=== PATIENT | male | born 1950 | race Caucasian/White ===

== ENCOUNTER → 2016-09-29 | Outpatient (CLI) | payer MEDICARE | END | disposition home or self-care (01) | LOC: M WUC 11:52 | PROVIDERS: ATTEND Internal Medicine | DX: M10.9 Gout, unspecified (principal) ==

== ENCOUNTER → 2017-06-13 | Outpatient (REF) | payer MEDICARE ==
[2017-06-13 13:28] LABS: MEAN CORPUSCULAR HEMOGLOBIN 31.6 pg (27.0-33.0); MEAN CORPUSCULAR HGB CONC 34.5 g/dl (32.0-36.5); MEAN CORPUSCULAR VOLUME 91.5 fl (80.0-96.0); WHITE BLOOD COUNT 3.8 10^3/uL (4.0-10.0)
[2017-06-13 13:40] LABS: ALBUMIN 4.1 GM/DL (3.2-5.2); ALBUMIN/GLOBULIN RATIO 1.32 (1.00-1.93); ALKALINE PHOSPHATASE 59 U/L (45-117); ALT/SGPT 26 U/L (12-78); ANION GAP 4 MEQ/L (8-16); AST/SGOT 20 U/L (15-37); BILIRUBIN,TOTAL 0.7 MG/DL (0.2-1.0); BLOOD UREA NITROGEN 23 MG/DL (7-18); CALCIUM LEVEL 8.2 MG/DL (8.8-10.2); CARBON DIOXIDE LEVEL 28 MEQ/L (21-32); CHLORIDE LEVEL 106 MEQ/L (98-107); CHOLESTEROL LEVEL 165 MG/DL (<200); CREATININE FOR GFR 1.03 MG/DL (0.70-1.30); GLOMERULAR FILTRATION RATE > 60.0 (>49); GLUCOSE, FASTING 84 MG/DL (80-110); POTASSIUM SERUM 4.9 MEQ/L (3.5-5.1); SODIUM LEVEL 138 MEQ/L (136-145); TOTAL PROTEIN 7.2 GM/DL (6.4-8.2); TRIGLYCERIDES LEVEL 149 MG/DL (<150); URIC ACID 6.2 MG/DL (3.5-7.2)
== END ==
LOC: M SFHCPLAZ 11:01
PROVIDERS: ATTEND Internal Medicine
DX: Z51.81 Encounter for therapeutic drug level monitoring (principal); Z79.899 Other long term (current) drug therapy; E78.00 Pure hypercholesterolemia, unspecified; Z12.5 Encounter for screening for malignant neoplasm of prostate; M10.9 Gout, unspecified
CPT/HCPCS: 80053; 80061; 84550; 85027; G0103

== ENCOUNTER 2017-10-03 10:18 | Day surgery (SDC) | payer MEDICARE ==
[2017-10-03] MEDS: NS 1,000 ML IV (10:53)
== END 2017-10-03 11:50 | disposition home or self-care (01) ==
LOC: M OPP 10:18
DX: Z12.11 Encounter for screening for malignant neoplasm of colon (principal); Z86.010 Personal history of colon polyps; K62.1 Rectal polyp; D12.2 Benign neoplasm of ascending colon; K64.0 First degree hemorrhoids; K57.30 Diverticulosis of large intestine without perforation or abscess without bleeding; E78.5 Hyperlipidemia, unspecified; K21.9 Gastro-esophageal reflux disease without esophagitis; R12 Heartburn; M19.90 Unspecified osteoarthritis, unspecified site; Z87.891 Personal history of nicotine dependence; Z79.82 Long term (current) use of aspirin; Z79.899 Other long term (current) drug therapy
CPT/HCPCS: 45385

== ENCOUNTER 2018-05-29 19:02 | Emergency (ER) | payer MEDICARE ==
[2018-05-29] MEDS: NS 500 ML IV (20:00)
[2018-05-29 20:03] LABS: BASO % 0.4 % (0.0-1.0); EOS # 0.1 10^3/uL (0.0-0.50); EOS % 0.6 % (0.0-3.0); HEMATOCRIT 44.3 % (42.0-52.0); HEMOGLOBIN 15.2 g/dl (13.5-17.5); IMMATURE GRANULOCYTE % 0.4 % (0-3.0); LYMPH # 1.1 10^3/uL (1.5-4.5); LYMPH % 11.2 % (24.0-44.0); MEAN CORPUSCULAR HGB CONC 34.3 g/dl (32.0-36.5); MEAN CORPUSCULAR VOLUME 90.4 fl (80.0-96.0); MONO # 0.5 10^3/uL (0.0-0.8); MONO % 4.9 % (0.0-5.0); NEUTROPHILS # 7.9 10^3/uL (1.8-7.7); NEUTROPHILS % 82.5 % (36.0-66.0); PLATELET COUNT, AUTOMATED 255 10^3/uL (150-450); RED CELL DISTRIBUTION WIDTH 12.6 % (11.5-14.5); WHITE BLOOD COUNT 9.6 10^3/uL (4.0-10.0)
[2018-05-29] MEDS: MORPHINE 4 MG/ML 1ML VIAL/SYRINGE (J2270) IV (20:03)
[2018-05-29] MEDS: ONDANSETRON 4MG/2ML VIAL (J2405) IV (20:03)
[2018-05-29 20:13] LABS: KETONE, URINE AUTO RFX TRACE mg/dL (NEGATIVE); LEUKOCYTE ESTERASE UR AUTO RFX NEGATIVE (NEGATIVE); MUCUS, URINE RFX SMALL (NEGATIVE); NITRITE, URINE AUTO RFX NEGATIVE (NEGATIVE); RBC, URINE AUTO RFX TNTC /HPF (0-3); SPECIFIC GRAVITY UR AUTO RFX 1.027 (1.002-1.035); SQUAM EPITHELIAL CELL UR AURFX 0 /HPF (0-6); WBC, URINE AUTO RFX 4 /HPF (0-3)
[2018-05-29 20:19] LABS: ALBUMIN 4.4 GM/DL (3.2-5.2); ALBUMIN/GLOBULIN RATIO 1.26 (1.00-1.93); ALKALINE PHOSPHATASE 72 U/L (45-117); ALT/SGPT 28 U/L (12-78); ANION GAP 11 MEQ/L (8-16); AST/SGOT 24 U/L (7-37); BILIRUBIN,DIRECT 0.1 MG/DL (0.0-0.2); BILIRUBIN,TOTAL 0.5 MG/DL (0.2-1.0); BLOOD UREA NITROGEN 19 MG/DL (7-18); CALCIUM LEVEL 9.3 MG/DL (8.8-10.2); CARBON DIOXIDE LEVEL 24 MEQ/L (21-32); CHLORIDE LEVEL 107 MEQ/L (98-107); CREATININE FOR GFR 1.24 MG/DL (0.70-1.30); GLOMERULAR FILTRATION RATE > 60.0 (>49); GLUCOSE, FASTING 120 MG/DL (70-100); POTASSIUM SERUM 3.6 MEQ/L (3.5-5.1); SODIUM LEVEL 142 MEQ/L (136-145); TOTAL PROTEIN 7.9 GM/DL (6.4-8.2)
[2018-05-29] MEDS: OXYCODONE/APAP 5MG/325MG(BULK FOR ED) 1 TABLET PO (22:22)
[2018-05-29] MEDS: ONDANSETRON 4 MG ORAL DISINTEGRATING TAB (Q0162 PER 1MG) PO (22:23)
[2018-05-29] MEDS: CIPROFLOXACIN 500 MG TAB PO (22:24)
== END 2018-05-29 22:53 | disposition home or self-care (01) ==
LOC: M ED 19:02
DX: N20.1 Calculus of ureter (principal); E78.5 Hyperlipidemia, unspecified; Z79.899 Other long term (current) drug therapy; Z79.82 Long term (current) use of aspirin
CPT/HCPCS: J2270

== ENCOUNTER → 2018-06-05 | Outpatient (REF) | payer MEDICARE ==
[2018-06-05 14:20] LABS: APPEARANCE, URINE CLEAR (CLEAR); BACTERIA, URINE AUTO NEGATIVE (NEGATIVE); BILIRUBIN, URINE AUTO NEGATIVE (NEGATIVE); BLOOD, URINE BLOOD 2+ (NEGATIVE); COLOR, URINE YELLOW (YELLOW); GLUCOSE, URINE (UA) AUTO NEGATIVE (NEGATIVE); KETONE, URINE AUTO NEGATIVE (NEGATIVE); LEUKOCYTE ESTERASE, URINE AUTO NEGATIVE (NEGATIVE); NITRITE, URINE AUTO NEGATIVE (NEGATIVE); PROTEIN, URINE AUTO NEGATIVE (NEGATIVE); RBC, URINE AUTO 9 /HPF (0-3); SPECIFIC GRAVITY URINE AUTO 1.008 (1.002-1.035); SQUAMOUS EPITHELIAL CELL UR AU 0 /HPF (0-6); UROBILINOGEN, URINE AUTO 0.2 mg/dL (0.0-2.0); WBC, URINE AUTO 1 /HPF (0-3)
== END ==
LOC: M SMT 13:34
DX: N20.0 Calculus of kidney (principal); R30.0 Dysuria
CPT/HCPCS: 81001

== ENCOUNTER → 2018-06-06 | Outpatient (REF) | payer MEDICARE ==
[2018-06-06 11:52] LABS: HEMATOCRIT 42.2 % (42.0-52.0); HEMOGLOBIN 14.4 g/dl (13.5-17.5); MEAN CORPUSCULAR HEMOGLOBIN 31.1 pg (27.0-33.0); MEAN CORPUSCULAR HGB CONC 34.1 g/dl (32.0-36.5); MEAN CORPUSCULAR VOLUME 91.1 fl (80.0-96.0); PLATELET COUNT, AUTOMATED 246 10^3/uL (150-450); RED BLOOD COUNT 4.63 10^6/uL (4.30-6.10); RED CELL DISTRIBUTION WIDTH 12.6 % (11.5-14.5); WHITE BLOOD COUNT 4.7 10^3/uL (4.0-10.0)
[2018-06-06 13:47] LABS: ALBUMIN/GLOBULIN RATIO 1.33 (1.00-1.93); ALKALINE PHOSPHATASE 56 U/L (45-117); ALT/SGPT 26 U/L (12-78); ANION GAP 11 MEQ/L (8-16); AST/SGOT 22 U/L (7-37); BILIRUBIN,TOTAL 0.7 MG/DL (0.2-1.0); BLOOD UREA NITROGEN 15 MG/DL (7-18); CARBON DIOXIDE LEVEL 26 MEQ/L (21-32); CHLORIDE LEVEL 107 MEQ/L (98-107); CHOLESTEROL LEVEL 170 MG/DL (<200); CHOLESTEROL RISK RATIO 3.469 (<5); CREATININE FOR GFR 0.99 MG/DL (0.70-1.30); GLOMERULAR FILTRATION RATE > 60.0 (>49); GLUCOSE, FASTING 91 MG/DL (70-100); HDL CHOLESTEROL 49 MG/DL (>40); LDL CHOLESTEROL 103 MG/DL (<100); NON-HDL-C 121 MG/DL; POTASSIUM SERUM 4.7 MEQ/L (3.5-5.1); PSA SCREENING 2.22 NG/ML (< 4.0); SODIUM LEVEL 144 MEQ/L (136-145); TRIGLYCERIDES LEVEL 91 MG/DL (<150); URIC ACID 5.3 MG/DL (3.5-7.2)
[2018-06-07 10:22] LABS: HEP C VIRUS AB SCREEN MEDICARE 0.2 INDEX (<0.8)
== END ==
LOC: M SFHCPLAZ 08:45
DX: K21.9 Gastro-esophageal reflux disease without esophagitis (principal); E78.00 Pure hypercholesterolemia, unspecified; Z12.5 Encounter for screening for malignant neoplasm of prostate; M10.9 Gout, unspecified; Z00.00 Encounter for general adult medical examination without abnormal findings; Z11.59 Encounter for screening for other viral diseases
CPT/HCPCS: 84550

== ENCOUNTER → 2018-07-04 | Outpatient (REF) | payer MEDICARE ==
[2018-07-04 18:40] LABS: APPEARANCE, URINE CLEAR (CLEAR); BACTERIA, URINE AUTO NEGATIVE (NEGATIVE); BILIRUBIN, URINE AUTO NEGATIVE (NEGATIVE); BLOOD, URINE BLOOD 1+ (NEGATIVE); COLOR, URINE STRAW (YELLOW); GLUCOSE, URINE (UA) AUTO NEGATIVE (NEGATIVE); KETONE, URINE AUTO NEGATIVE (NEGATIVE); LEUKOCYTE ESTERASE, URINE AUTO NEGATIVE (NEGATIVE); NITRITE, URINE AUTO NEGATIVE (NEGATIVE); PROTEIN, URINE AUTO NEGATIVE (NEGATIVE); RBC, URINE AUTO 3 /HPF (0-3); SPECIFIC GRAVITY URINE AUTO 1.008 (1.002-1.035); SQUAMOUS EPITHELIAL CELL UR AU 0 /HPF (0-6); UROBILINOGEN, URINE AUTO 0.2 mg/dL (0.0-2.0); WBC, URINE AUTO 1 /HPF (0-3)
== END ==
LOC: M SMT 17:17
DX: N20.0 Calculus of kidney (principal)
CPT/HCPCS: 81001

== ENCOUNTER 2019-01-28 15:41 | Emergency (ER) | payer MEDICARE ==
[~2019-01-28] VITALS: Ht 172.7 cm; Wt 90.9 kg
[~2019-01-28 15:41] MED LIST: ASPI81TA26 PO; ATOR1TAB19 PO; ATOR1TAB21; CENTTAB PO; CIPR-249 PO; FLOM0.4C39 PO; PERC5TAB12 PO; ZOFR4TAB14 PO
[2019-01-28] MEDS ORDERED: ADACEL/BOOSTRIX VACCINE (DIPHTH/PERTUSS/ACELL/TETANUS)0.5ML SYR (90715) IM ONE (16:00)
[2019-01-28] MEDS ORDERED: MORPHINE 4 MG/ML 1ML VIAL/SYRINGE (J2270) IV ONE (16:00)
[2019-01-28] MEDS ORDERED: PERC5TAB12 PO (18:13)
[2019-01-28] MEDS ORDERED: PERCOCET 5MG/325MG TAB PO ONE (18:15)
[2019-01-28 19:05] VITALS: BP 173/94
[2019-01-28] MEDS ORDERED: OXYCODONE/APAP 5MG/325MG(BULK FOR ED) 1 TABLET PO ONE (19:15)
--- NOTE | 2019-01-29 07:50 | REP ---
REASON: Trauma. PRIORS: None. The ventricles and sulci are within normal limits. There are no extra-axial fluid collections. There is no mass or mass effect. Scattered lucencies are seen throughout the periventricular deep cerebral white matter suggestive of deep white matter ischemic changes. There is no skull fracture. The imaged paranasal sinuses and mastoid air cells are clear. IMPRESSION: Age-related changes are suspected as described above, however, if acute stroke is of clinical concern, then MRI is recommended. Electronically Signed by Yifan Alcala DO 01/29/2019 08:41 A
--- NOTE | 2019-01-29 07:50 | REP ---
REASON: Trauma. PRIORS: None. The facet joints are well aligned bilaterally. Vertebral body height and alignment is within normal limits. There is no acute fracture. There is degenerative disc space narrowing and anterior lipping at every level particularly C5-C7 inclusive. There is no abnormal paraspinal soft tissue swelling. The imaged lung villa are unremarkable. IMPRESSION: Chronic changes. Electronically Signed by Yifan Alcala DO 01/29/2019 08:41 A
--- NOTE | 2019-01-29 07:53 | REP ---
REASON: Trauma. PRIORS: None. The lack of intravenous contrast decreases the sensitivity of the exam. There is no evidence of gross mediastinal or hilar adenopathy. There are no pleural or pericardial effusions. Limited evaluation of the thoracic aorta shows no gross abnormality. The imaged upper abdomen is within normal limits. The imaged osseous structures show a fracture of the proximal right clavicle with slight displacement. Evaluation of the lung villa shows a tiny 4 mm size nodule in the right lower lobe. There are no other abnormal nodules, masses, or opacities. IMPRESSION: 1. Single 4 mm size right lower lobe pulmonary nodule. According to the revised Fleischner-size criteria, recommendation for followup of that nodule is in 6 months as it represents a category 3 lesion. 2. Right clavicle fracture and other findings as described above. Electronically Signed by Yifan Alcala DO 01/29/2019 08:36 A
--- NOTE | 2019-01-29 07:53 | REP ---
REASON: Trauma. PRIORS: None. FINDINGS: There is no acute fracture, dislocation, subluxation or joint effusion. Electronically Signed by Yifan Alcala DO 01/29/2019 08:41 A
--- NOTE | 2019-01-29 07:53 | REP ---
REASON: Trauma. PRIORS: None. FINDINGS: No acute fracture or destructive osseous lesion. Electronically Signed by Yifan Alcala DO 01/29/2019 08:41 A
--- NOTE | 2019-01-29 07:54 | REP ---
REASON: Pain after trauma. PRIORS: None. FINDINGS: Three views of the shoulder were performed. The acromioclavicular and glenohumeral relationships are within normal limits. There is no acute fracture or destructive osseous lesion. The proximal right clavicle is not well seen . A fracture can not be ruled out Electronically Signed by Yifan Alcala DO 01/29/2019 08:44 A
--- NOTE | 2019-01-30 14:55 | ED PDOC ---
Post-Departure Follow-Up dr couch faxed formal report of ct chest for fu Veena Thornton MD January 30, 2019 14:55
== END 2019-01-28 19:21 | disposition home or self-care (01) ==
LOC: M ED 15:41
DX: S42.001A Fracture of unspecified part of right clavicle, initial encounter for closed fracture (principal); S00.01XA Abrasion of scalp, initial encounter; W17.89XA Other fall from one level to another, initial encounter; Y92.89 Other specified places as the place of occurrence of the external cause; R91.1 Solitary pulmonary nodule; E78.9 Disorder of lipoprotein metabolism, unspecified; Z79.82 Long term (current) use of aspirin
CPT/HCPCS: 70450; 71250; 72125; 73030; 73060; 73080; 90471; 90715; 96374; 99284; J2270

== ENCOUNTER → 2019-06-13 | Outpatient (REF) | payer MEDICARE ==
[2019-06-13 13:07] LABS: APPEARANCE, URINE CLEAR (CLEAR); BACTERIA, URINE AUTO NEGATIVE (NEGATIVE); BILIRUBIN, URINE AUTO NEGATIVE (NEGATIVE); BLOOD, URINE BLOOD 1+ (NEGATIVE); COLOR, URINE YELLOW (YELLOW); GLUCOSE, URINE (UA) AUTO NEGATIVE (NEGATIVE); HEMATOCRIT 41.6 % (42.0-52.0); HEMOGLOBIN 14.2 g/dl (13.5-17.5); KETONE, URINE AUTO NEGATIVE (NEGATIVE); LEUKOCYTE ESTERASE, URINE AUTO NEGATIVE (NEGATIVE); MEAN CORPUSCULAR HEMOGLOBIN 31.4 pg (27.0-33.0); MEAN CORPUSCULAR HGB CONC 34.1 g/dl (32.0-36.5); MUCUS, URINE SMALL (NEGATIVE); NITRITE, URINE AUTO NEGATIVE (NEGATIVE); PLATELET COUNT, AUTOMATED 228 10^3/uL (150-450); PROTEIN, URINE AUTO NEGATIVE (NEGATIVE); RBC, URINE AUTO 4 /HPF (0-3); RED BLOOD COUNT 4.52 10^6/uL (4.30-6.10); SQUAMOUS EPITHELIAL CELL UR AU 0 /HPF (0-6); UROBILINOGEN, URINE AUTO 0.2 mg/dL (0.0-2.0); WBC, URINE AUTO 0 /HPF (0-3); WHITE BLOOD COUNT 4.3 10^3/uL (4.0-10.0)
[2019-06-13 13:40] LABS: ALBUMIN 3.6 GM/DL (3.2-5.2); ALT/SGPT 32 U/L (12-78); BILIRUBIN,TOTAL 0.6 MG/DL (0.2-1.0); BLOOD UREA NITROGEN 16 MG/DL (7-18); CALCIUM LEVEL 8.5 MG/DL (8.8-10.2); CARBON DIOXIDE LEVEL 28 MEQ/L (21-32); CHLORIDE LEVEL 110 MEQ/L (98-107); CHOLESTEROL LEVEL 154 MG/DL (<200); CHOLESTEROL RISK RATIO 3.756 (<5); CREATININE FOR GFR 0.97 MG/DL (0.70-1.30); GLOMERULAR FILTRATION RATE > 60.0 (>49); GLUCOSE, FASTING 99 MG/DL (70-100); HDL CHOLESTEROL 41 MG/DL (>40); LDL CHOLESTEROL 95 MG/DL (<100); MAGNESIUM LEVEL 2.3 MG/DL (1.8-2.4); NON-HDL-C 113 MG/DL; POTASSIUM SERUM 4.3 MEQ/L (3.5-5.1); SODIUM LEVEL 144 MEQ/L (136-145); TOTAL PROTEIN 6.6 GM/DL (6.4-8.2); TRIGLYCERIDES LEVEL 91 MG/DL (<150); URIC ACID 4.8 MG/DL (3.5-7.2)
== END ==
LOC: M SFHCPLAZ 10:26
PROVIDERS: ATTEND Internal Medicine
DX: Z12.5 Encounter for screening for malignant neoplasm of prostate (principal); K21.9 Gastro-esophageal reflux disease without esophagitis; E78.00 Pure hypercholesterolemia, unspecified; Z87.442 Personal history of urinary calculi; M10.9 Gout, unspecified
CPT/HCPCS: 36415; 80053; 80061; 81001; 83735; 84550; 85027; G0103

== ENCOUNTER → 2019-08-03 | Outpatient (CLI) | payer MEDICARE ==
--- NOTE | 2019-08-03 19:06 | REP ---
CT chest without contrast: History: Lung nodule. Comparison chest CT study January 28, 2019. CT findings: A displaced, incompletely united fracture of the proximal clavicle on the right is again noted. No bony destructive lesion is seen. There has been no change in the size or appearance of the 4 mm nodule seen previously in the right lower lobe in the interval since the January 28, 2019 study. No new pulmonary nodule is seen. No pleural or pericardial effusion is seen. There is some vascular calcification. No hilar or mediastinal mass or adenopathy is observed on this noncontrast study. No adrenal lesion is seen. Impression: Stable 4 mm right lower lobe nodule unchanged times 6 months. Recommend 12-month followup chest CT. Electronically Signed by Les Plummer MD 08/04/2019 12:35 P
== END ==
LOC: M RAD 13:23
PROVIDERS: ATTEND Internal Medicine
DX: R91.1 Solitary pulmonary nodule (principal)

== ENCOUNTER → 2019-11-12 | Outpatient (CLI) | payer MEDICARE ==
--- NOTE | 2019-11-12 08:41 | REPPI ---
Chest x-ray: Two views. History: Cough. Comparison study is chest CT study from August 03, 2019. Findings: The lungs are symmetrically aerated and free of infiltrate. Pleural angles are sharp. Cardiomediastinal silhouette is unremarkable. No bony abnormality is appreciated. Impression: No active cardiopulmonary disease seen. Electronically Signed by Les Plummer MD 11/12/2019 09:35 A
== END ==
LOC: M PLAIMG 08:16
PROVIDERS: ATTEND Internal Medicine
DX: R05 Cough (principal)

== ENCOUNTER → 2020-06-12 | Outpatient (REF) | payer MEDICARE ==
[2020-06-12 15:08] LABS: HEMATOCRIT 45.5 % (42.0-52.0); HEMOGLOBIN 15.5 g/dl (13.5-17.5); MEAN CORPUSCULAR HEMOGLOBIN 31.2 pg (27.0-33.0); MEAN CORPUSCULAR HGB CONC 34.1 g/dl (32.0-36.5); MEAN CORPUSCULAR VOLUME 91.5 fl (80.0-96.0); PLATELET COUNT, AUTOMATED 256 10^3/uL (150-450); RED BLOOD COUNT 4.97 10^6/uL (4.30-6.10); WHITE BLOOD COUNT 5.4 10^3/uL (4.0-10.0)
[2020-06-12 15:38] LABS: ALBUMIN 4.1 GM/DL (3.2-5.2); ALT/SGPT 31 U/L (12-78); BILIRUBIN,TOTAL 1.1 MG/DL (0.2-1.0); BLOOD UREA NITROGEN 15 MG/DL (7-18); CALCIUM LEVEL 9.5 MG/DL (8.8-10.2); CARBON DIOXIDE LEVEL 29 MEQ/L (21-32); CHLORIDE LEVEL 105 MEQ/L (98-107); CHOLESTEROL LEVEL 189 MG/DL (<200); CHOLESTEROL RISK RATIO 3.705 (<5); GLOMERULAR FILTRATION RATE > 60.0 (>42); GLUCOSE, FASTING 90 MG/DL (70-100); HDL CHOLESTEROL 51 MG/DL (>40); LDL CHOLESTEROL 108 MG/DL (<100); NON-HDL-C 138 MG/DL; POTASSIUM SERUM 4.6 MEQ/L (3.5-5.1); SODIUM LEVEL 139 MEQ/L (136-145); TOTAL PROTEIN 7.4 GM/DL (6.4-8.2); TRIGLYCERIDES LEVEL 148 MG/DL (<150)
[2020-06-12 15:39] LABS: VITAMIN B12 LEVEL 294 PG/ML
== END ==
LOC: M PLALAB 12:34
PROVIDERS: ATTEND Internal Medicine
DX: K21.9 Gastro-esophageal reflux disease without esophagitis (principal); E78.00 Pure hypercholesterolemia, unspecified; Z12.5 Encounter for screening for malignant neoplasm of prostate; R41.3 Other amnesia
CPT/HCPCS: 36415; 80053; 80061; 82607; 82746; 84443; 85027; G0103

== ENCOUNTER → 2020-09-02 | Outpatient (CLI) | payer MEDICARE ==
--- NOTE | 2020-09-02 13:43 | REP ---
INDICATION: SOLITARY PULMONARY NODULE COMPARISON: None TECHNIQUE: Axial noncontrast images from the thoracic inlet to the upper abdomen with coronal and sagittal reformations. This CT examination was performed using the following dose reduction techniques: Automated exposure control, adjustment of mA and/or kv according to the patient's size, and use of iterative reconstruction technique. FINDINGS: Bilateral lung villa are well aerated. Small, 3-4 mm nodule in the right lower lobe remains stable. No consolidation, further suspicious nodule or mass lesion. No pleural effusion. No pneumothorax. Tracheobronchial tree is patent. No obvious adenopathy. Mediastinum demonstrates stable atherosclerotic changes to the thoracic aorta and coronary arteries. Musculoskeletal structures are intact. Limited upper abdomen demonstrates normal bilateral adrenal glands. IMPRESSION: Stable 3-4 mm nodule in the right lower lobe appears relatively chronic. No significant acute mediastinal or pleuroparenchymal process appreciated. <Electronically signed by Avtar Subramanian > 09/02/20 [id number]
== END ==
LOC: M RAD 12:46
PROVIDERS: ATTEND Internal Medicine
DX: R91.1 Solitary pulmonary nodule (principal)

== ENCOUNTER → 2021-06-22 | Outpatient (CLI) | payer MEDICARE ==
[2021-06-22 13:54] LABS: BASO % 0.4 % (0.0-1.0); EOS # 0.1 10^3/uL (0.0-0.5); EOS % 2.4 % (0.0-3.0); HEMATOCRIT 45.6 % (42.0-52.0); HEMOGLOBIN 15.5 g/dl (13.5-17.5); LYMPH # 1.3 10^3/uL (1.5-5.0); LYMPH % 28.5 % (24.0-44.0); MEAN CORPUSCULAR HEMOGLOBIN 30.9 pg (27.0-33.0); MEAN CORPUSCULAR VOLUME 90.8 fl (80.0-96.0); MONO # 0.5 10^3/uL (0.0-0.8); MONO % 10.9 % (2.0-8.0); NEUTROPHILS # 2.6 10^3/uL (1.5-8.5); NEUTROPHILS % 57.6 % (36.0-66.0); PLATELET COUNT, AUTOMATED 257 10^3/uL (150-450); RED BLOOD COUNT 5.02 10^6/uL (4.30-6.10); WHITE BLOOD COUNT 4.6 10^3/uL (4.0-10.0)
[2021-06-22 14:48] LABS: ALBUMIN 3.7 GM/DL (3.2-5.2); ALT/SGPT 24 U/L (12-78); BILIRUBIN,TOTAL 0.8 MG/DL (0.2-1.0); BLOOD UREA NITROGEN 19 MG/DL (7-18); CALCIUM LEVEL 8.4 MG/DL (8.8-10.2); CARBON DIOXIDE LEVEL 27 MEQ/L (21-32); CHLORIDE LEVEL 107 MEQ/L (98-107); CHOLESTEROL LEVEL 135 MG/DL (<200); CHOLESTEROL RISK RATIO 4.218 (<5); CREATININE FOR GFR 1.07 MG/DL (0.70-1.30); GLOMERULAR FILTRATION RATE > 60.0 (>42); GLUCOSE, FASTING 84 MG/DL (70-100); HDL CHOLESTEROL 32 MG/DL (>40); LDL CHOLESTEROL 84 MG/DL (<100); NON-HDL-C 103 MG/DL; POTASSIUM SERUM 4.4 MEQ/L (3.5-5.1); SODIUM LEVEL 140 MEQ/L (136-145); TOTAL PROTEIN 7.2 GM/DL (6.4-8.2); TRIGLYCERIDES LEVEL 94 MG/DL (<150)
== END ==
LOC: M PLALAB 10:10
PROVIDERS: ATTEND Internal Medicine
DX: R78.89 Finding of other specified substances, not normally found in blood (principal); Z12.5 Encounter for screening for malignant neoplasm of prostate; E07.9 Disorder of thyroid, unspecified
CPT/HCPCS: 36415; 80053; 80061; 84443; 85025; G0103

== ENCOUNTER → 2021-07-02 | Outpatient (CLI) | payer MEDICARE ==
--- NOTE | 2021-07-03 12:29 | REPVR ---
PROCEDURE INFORMATION: Exam: MR Head Without Contrast Exam date and time: 07/02/2021 10:50 AM Age: 71 years old Clinical indication: Altered mental status/memory loss; Additional info: Short term memory loss TECHNIQUE: Imaging protocol: MR of the head without contrast. COMPARISON: CT Head without contrast 01/28/2019 3:56 PM FINDINGS: Brain: There is no acute intracranial abnormality. No evidence of restricted diffusion.Moderate periventricular, subcortical and deep white matter Flair small vessel ischemic changes are seen. There is no mass, midline shift, or mass effect. There is no evidence of hemorrhage. There is no extra-axial fluid collection. Basal cisterns are patent. Cerebral ventricles: Moderate prominence of ventricles and sulcci representing volume loss. Bones/joints: The visualized osseous structures are unremarkable. Paranasal sinuses: Visualized sinuses demonstrate small mucous retension in the right maxillary sinus. Mild mucosal thickening of the ethmoidal cells. Mastoid air cells: Mastoid air cells are clear. Orbital cavity: Unremarkable. Soft tissues: Unremarkable. IMPRESSION: 1. Moderate volume loss and small vessel ischemic changes. 2. No acute intracranial abnormality. Electronically signed by: Palmira Aguilar On 07/03/2021 12:28:22 PM
== END ==
LOC: M PLAIMG 10:12
PROVIDERS: ATTEND Internal Medicine
DX: R41.3 Other amnesia (principal)

== ENCOUNTER → 2021-10-08 | Outpatient (CLI) | payer MEDICARE ==
[2021-10-08 15:48] LABS: ALT/SGPT 35 U/L (12-78); BILIRUBIN,TOTAL 0.5 MG/DL (0.2-1.0); BLOOD UREA NITROGEN 20 MG/DL (7-18); CALCIUM LEVEL 9.1 MG/DL (8.8-10.2); CARBON DIOXIDE LEVEL 28 MEQ/L (21-32); CHLORIDE LEVEL 109 MEQ/L (98-107); CREATININE FOR GFR 1.08 MG/DL (0.70-1.30); GLOMERULAR FILTRATION RATE > 60.0 (>42); GLUCOSE, FASTING 82 MG/DL (70-100); POTASSIUM SERUM 4.8 MEQ/L (3.5-5.1); SODIUM LEVEL 145 MEQ/L (136-145); TOTAL PROTEIN 7.2 GM/DL (6.4-8.2)
[2021-10-09 10:44] LABS: VITAMIN B12 LEVEL 913 PG/ML (247-911)
== END ==
LOC: M PLALAB 09:10
PROVIDERS: ATTEND Internal Medicine
DX: E78.00 Pure hypercholesterolemia, unspecified (principal)

== ENCOUNTER → 2022-04-01 | Outpatient (CLI) | payer MEDICARE ==
[2022-04-01 10:48] LABS: BASO % 0.9 % (0.0-1.0); EOS # 0.2 10^3/uL (0.0-0.5); EOS % 3.5 % (0.0-3.0); HEMATOCRIT 44.2 % (42.0-52.0); HEMOGLOBIN 14.6 g/dl (13.5-17.5); LYMPH # 1.4 10^3/uL (1.5-5.0); LYMPH % 31.5 % (24.0-44.0); MEAN CORPUSCULAR HEMOGLOBIN 30.7 pg (27.0-33.0); MEAN CORPUSCULAR VOLUME 93.1 fl (80.0-96.0); MONO # 0.4 10^3/uL (0.0-0.8); MONO % 9.8 % (2.0-8.0); NEUTROPHILS # 2.4 10^3/uL (1.5-8.5); NEUTROPHILS % 54.1 % (36.0-66.0); PLATELET COUNT, AUTOMATED 250 10^3/uL (150-450); RED BLOOD COUNT 4.75 10^6/uL (4.30-6.10); WHITE BLOOD COUNT 4.5 10^3/uL (4.0-10.0)
[2022-04-01 11:21] LABS: ALBUMIN 3.7 GM/DL (3.2-5.2); ALT/SGPT 55 U/L (12-78); BILIRUBIN,TOTAL 0.7 MG/DL (0.2-1.0); BLOOD UREA NITROGEN 16 MG/DL (7-18); CALCIUM LEVEL 8.7 MG/DL (8.8-10.2); CARBON DIOXIDE LEVEL 30 MEQ/L (21-32); CHLORIDE LEVEL 106 MEQ/L (98-107); CHOLESTEROL LEVEL 144 MG/DL (<200); CHOLESTEROL RISK RATIO 2.823 (<5); CREATININE FOR GFR 0.99 MG/DL (0.70-1.30); GLOMERULAR FILTRATION RATE > 60.0 (>42); GLUCOSE, FASTING 89 MG/DL (70-100); HDL CHOLESTEROL 51 MG/DL (>40); LDL CHOLESTEROL 78 MG/DL (<100); NON-HDL-C 93 MG/DL; POTASSIUM SERUM 4.6 MEQ/L (3.5-5.1); SODIUM LEVEL 139 MEQ/L (136-145); TOTAL PROTEIN 6.7 GM/DL (6.4-8.2); TRIGLYCERIDES LEVEL 74 MG/DL (<150)
== END ==
LOC: M PLALAB 08:48
PROVIDERS: ATTEND Internal Medicine
DX: E78.00 Pure hypercholesterolemia, unspecified (principal); Z86.010 Personal history of colon polyps

== ENCOUNTER → 2022-07-29 | Outpatient (CLI) | payer MEDICARE ==
[2022-07-29 18:19] LABS: HEMATOCRIT 44.7 % (42.0-52.0); HEMOGLOBIN 15.2 g/dl (13.5-17.5); MEAN CORPUSCULAR HEMOGLOBIN 32.1 pg (27.0-33.0); MEAN CORPUSCULAR VOLUME 94.3 fl (80.0-96.0); PLATELET COUNT, AUTOMATED 246 10^3/uL (150-450); RED BLOOD COUNT 4.74 10^6/uL (4.30-6.10); WHITE BLOOD COUNT 6.1 10^3/uL (4.0-10.0)
[2022-07-29 21:57] LABS: ALBUMIN 4.4 G/DL (3.2-5.2); ALT/SGPT 37 U/L (7.0-40); BILIRUBIN,TOTAL 0.8 MG/DL (0.3-1.2); BLOOD UREA NITROGEN 18 MG/DL (9-23); CALCIUM LEVEL 9.2 MG/DL (8.3-10.6); CARBON DIOXIDE LEVEL 29 MMOL/L (20-31); CHLORIDE LEVEL 103 MMOL/L (98-107); CREATININE FOR GFR 0.98 MG/DL (0.70-1.30); GLOMERULAR FILTRATION RATE > 60.0 (>42); GLUCOSE, FASTING 82 MG/DL (74-106); POTASSIUM SERUM 4.3 MMOL/L (3.5-5.1); SODIUM LEVEL 140 MMOL/L (136-145); THYROID STIMULATING HORMONE 8.704 uIU/ML (0.55-4.78); TOTAL 25(OH) VITAMIN D 28.4 NG/ML (20.0-100.0); TOTAL PROTEIN 7.1 G/DL (5.7-8.2); VITAMIN B12 LEVEL 966 PG/ML (211-911)
[2022-07-29 22:17] LABS: FOLATE > 24.00 NG/ML (>5.4)
== END ==
LOC: M PLALAB 13:59
PROVIDERS: ATTEND Nurse Practitioner Adult Health
DX: R41.3 Other amnesia (principal); Z79.899 Other long term (current) drug therapy

== ENCOUNTER → 2022-08-31 | Outpatient (CLI) | payer MEDICARE | LOC: M PLAIMG 11:26 | PROVIDERS: ATTEND Physician Assistant | DX: M54.50 Low back pain, unspecified (principal) ==

== ENCOUNTER → 2022-11-06 | Outpatient (REF) | payer MEDICARE | LOC: M SFHCPLAZ 12:50 | PROVIDERS: ATTEND Nurse Practitioner Adult Health | DX: R79.89 Other specified abnormal findings of blood chemistry (principal) ==

== ENCOUNTER → 2022-11-10 | Outpatient (CLI) | payer MEDICARE ==
[2022-11-10 16:10] LABS: FREE T4 0.76 NG/DL (0.89-1.76)
[2022-11-10 16:11] LABS: THYROID STIMULATING HORMONE 5.914 uIU/ML (0.55-4.78)
== END ==
LOC: M PLALAB 11:55
PROVIDERS: ATTEND Nurse Practitioner Adult Health
DX: R79.89 Other specified abnormal findings of blood chemistry (principal); E07.9 Disorder of thyroid, unspecified

== ENCOUNTER → 2023-01-26 | Outpatient (CLI) | payer MEDICARE ==
[2023-01-26 13:36] LABS: HEMATOCRIT 43.3 % (42.0-52.0); HEMOGLOBIN 14.6 g/dl (13.5-17.5); MEAN CORPUSCULAR HEMOGLOBIN 31.7 pg (27.0-33.0); MEAN CORPUSCULAR HGB CONC 33.7 g/dl (32.0-36.5); MEAN CORPUSCULAR VOLUME 94.1 fl (80.0-96.0); PLATELET COUNT, AUTOMATED 231 10^3/uL (150-450); WHITE BLOOD COUNT 5.1 10^3/uL (4.0-10.0)
[2023-01-26 13:59] LABS: HEMOGLOBIN A1c 5.1 % (4.0-6.0)
[2023-01-26 14:09] LABS: ALBUMIN 3.8 G/DL (3.2-5.2); ALKALINE PHOSPHATASE 58 U/L (46-116); ALT/SGPT 85 U/L (7.0-40); AST/SGOT 47 U/L (<34); BILIRUBIN,TOTAL 0.6 MG/DL (0.3-1.2); BLOOD UREA NITROGEN 17 MG/DL (9-23); CALCIUM LEVEL 8.9 MG/DL (8.3-10.6); CARBON DIOXIDE LEVEL 30 MMOL/L (20-31); CHLORIDE LEVEL 108 MMOL/L (98-107); CREATININE FOR GFR 1.05 MG/DL (0.70-1.30); GLOMERULAR FILTRATION RATE > 60.0 (>42); GLUCOSE, FASTING 77 MG/DL (74-106); POTASSIUM SERUM 4.2 MMOL/L (3.5-5.1); SODIUM LEVEL 145 MMOL/L (136-145); THYROID STIMULATING HORMONE 6.329 uIU/ML (0.55-4.78); TOTAL PROTEIN 6.4 G/DL (5.7-8.2)
== END ==
LOC: M PLALAB 11:10
PROVIDERS: ATTEND Nurse Practitioner Adult Health
DX: R41.3 Other amnesia (principal); R79.89 Other specified abnormal findings of blood chemistry; E78.00 Pure hypercholesterolemia, unspecified

== ENCOUNTER 2024-01-07 19:38 | Inpatient (IN) | payer MEDICARE ==
[~2024-01-07] VITALS: Ht 165.1 cm; Wt 75.6 kg
[2024-01-07] MEDS ORDERED: RISP0.5T82 PO (20:02)
[2024-01-07] MEDS ORDERED: RISP0.253 PO (20:02)
[2024-01-07 21:01] LABS: VENOUS BASE EXCESS -2.2 (-2.0-2.0); VENOUS O2 SATURATION 72.5 % (60.0-80.0); VENOUS PARTIAL PRESSURE CO2 41.2 mmHg (38.0-50.0); VENOUS PARTIAL PRESSURE O2 36.9 mmHg (30.0-50.0); VENOUS PH 7.365 UNITS (7.330-7.430); VENOUS TOTAL CO2 24.3 MMOL/L (24.0-28.0)
[2024-01-07 21:11] LABS: BASO % 0.2 % (0.0-1.0); EOS # 0.1 10^3/uL (0.0-0.5); EOS % 1.7 % (0.0-3.0); HEMOGLOBIN 14.3 g/dl (13.5-17.5); LYMPH # 1.5 10^3/uL (1.5-5.0); MEAN CORPUSCULAR HEMOGLOBIN 32.2 pg (27.0-33.0); MEAN CORPUSCULAR HGB CONC 34.9 g/dl (32.0-36.5); MEAN CORPUSCULAR VOLUME 92.3 fl (80.0-96.0); MONO # 0.6 10^3/uL (0.0-0.8); MONO % 7.9 % (2.0-8.0); NEUTROPHILS # 5.8 10^3/uL (1.5-8.5); NEUTROPHILS % 71.8 % (36.0-66.0); PLATELET COUNT, AUTOMATED 256 10^3/uL (150-450); RED BLOOD COUNT 4.44 10^6/uL (4.30-6.10); WHITE BLOOD COUNT 8.1 10^3/uL (4.0-10.0)
[2024-01-07 21:39] LABS: CK-MB VALUE MASS 1.7 NG/ML (<3.6)
[2024-01-07 21:40] LABS: ETHYL ALCOHOL (ETHANOL) < 0.003 % (0.000-0.010)
[2024-01-07 21:41] LABS: ALKALINE PHOSPHATASE 71 U/L (46-116); ALT/SGPT 27 U/L (7.0-40); AST/SGOT 28 U/L (<34); BILIRUBIN,DIRECT < 0.1 MG/DL (<0.4); BILIRUBIN,TOTAL 0.5 MG/DL (0.3-1.2); BLOOD UREA NITROGEN 21 MG/DL (9-23); CALCIUM LEVEL 8.9 MG/DL (8.3-10.6); CARBON DIOXIDE LEVEL 25 MMOL/L (20-31); CHLORIDE LEVEL 109 MMOL/L (98-107); CREATININE FOR GFR 0.96 MG/DL (0.70-1.30); GLOMERULAR FILTRATION RATE > 60.0 (>42); GLUCOSE, FASTING 110 MG/DL (74-106); POTASSIUM SERUM 4.2 MMOL/L (3.5-5.1); SALICYLATE LEVEL < 3.0 MG/DL (<30); SODIUM LEVEL 142 MMOL/L (136-145); TOTAL PROTEIN 6.8 G/DL (5.7-8.2)
[2024-01-07 21:43] LABS: THYROID STIMULATING HORMONE 8.087 uIU/ML (0.55-4.78)
[2024-01-07 21:49] LABS: OSMOLALITY SERUM 295 MOSM/KG (280-301)
[2024-01-07 21:51] LABS: CPK CREATINE PHOSPHOKINASE 143 U/L (46-171); MB/CK RELATIVE INDEX 1.18 (< OR =4)
[2024-01-07 22:40] LABS: AMPHETAMINES LEVEL URINE NEGATIVE (NEGATIVE); BARBITURATES URINE NEGATIVE (NEGATIVE); BENZODIAZEPINES URINE NEGATIVE (NEGATIVE); CANNABINOIDS URINE NEGATIVE (NEGATIVE); COCAINE METABOLITE URINE NEGATIVE (NEGATIVE); METHADONE URINE NEGATIVE (NEGATIVE); OPIATES URINE NEGATIVE (NEGATIVE); PHENCYCLIDINE URINE NEGATIVE (NEGATIVE)
[2024-01-07] MEDS: risperiDONE 0.5 MG TAB PO ONE (23:25)
[2024-01-07] MEDS ORDERED: VITA100093 PO (23:34)
[2024-01-07] MEDS ORDERED: THERTAB52 PO (23:34)
[2024-01-07] MEDS ORDERED: B-12100010 PO (23:34)
[2024-01-07] MEDS ORDERED: HOME MED LIST COMPLETE! XX SCH (23:40)
[2024-01-08] MEDS ORDERED: MAALOX 30 ML SUSP *UDC PO PRN (00:40)
[2024-01-08 01:00] VITALS: BP 138/98; TEMP 97.7; O2SAT 95
[2024-01-08] MEDS: OLANZapine ORAL DISINTEGRATING TAB 5MG PO PRN (01:33)
[2024-01-08] MEDS: traZODone 50 MG TAB PO PRN (01:33)
[2024-01-08 08:11] LABS: FREE T4 0.78 NG/DL (0.89-1.76)
[2024-01-08 08:12] LABS: FREE T3 3.5 PG/ML (2.3-4.2)
[2024-01-08] MEDS: DOCUSATE SODIUM 100MG CAPSULE PO SCH (08:32)
[2024-01-08] MEDS: QUEtiapine FUMARATE 25 MG TAB PO SCH ×2 (08:32→20:52)
[2024-01-08] MEDS: ENOXAPARIN 40MG/0.4ML SYRINGE (J1650 PER 10MG) SC SCH (08:34)
[2024-01-08] MEDS ORDERED: QUEtiapine FUMARATE 50MG TAB PO SCH (09:00)
[2024-01-08] MEDS ORDERED: HALOPERIDOL LACTATE 5MG/ML VIAL IM PRN (14:15)
[2024-01-08] MEDS ORDERED: HALOPERIDOL LACTATE 5MG/ML VIAL As Ordered ONE (14:17)
[2024-01-08] MEDS: HALOPERIDOL LACTATE 5MG/ML VIAL IM PRN (14:44)
[2024-01-08 20:56] VITALS: BP 118/62; TEMP 97.9; O2SAT 97
[2024-01-08] MEDS ORDERED: risperiDONE 0.5 MG TAB PO SCH (21:00)
[2024-01-09 05:56] VITALS: BP 116/62; TEMP 97.7; O2SAT 98
[2024-01-09 07:12] LABS: HEMATOCRIT 40.2 % (42.0-52.0); HEMOGLOBIN 13.6 g/dl (13.5-17.5); MEAN CORPUSCULAR HEMOGLOBIN 31.8 pg (27.0-33.0); MEAN CORPUSCULAR HGB CONC 33.8 g/dl (32.0-36.5); MEAN CORPUSCULAR VOLUME 93.9 fl (80.0-96.0); PLATELET COUNT, AUTOMATED 220 10^3/uL (150-450); RED BLOOD COUNT 4.28 10^6/uL (4.30-6.10); WHITE BLOOD COUNT 6.3 10^3/uL (4.0-10.0)
[2024-01-09 07:31] LABS: BLOOD UREA NITROGEN 16 MG/DL (9-23); CALCIUM LEVEL 8.3 MG/DL (8.3-10.6); CARBON DIOXIDE LEVEL 27 MMOL/L (20-31); CHLORIDE LEVEL 109 MMOL/L (98-107); CREATININE FOR GFR 0.88 MG/DL (0.70-1.30); GLOMERULAR FILTRATION RATE > 60.0 (>42); GLUCOSE, FASTING 91 MG/DL (74-106); MAGNESIUM LEVEL 2.1 MG/DL (1.8-2.4); SODIUM LEVEL 142 MMOL/L (136-145)
[2024-01-09] MEDS: ALPRAZolam 0.5 MG TAB PO PRN (11:50)
[2024-01-09 14:00] VITALS: BP 123/67; TEMP 97; O2SAT 97
[2024-01-09 20:03] VITALS: BP 120/64; TEMP 97.4; O2SAT 98
[2024-01-10 07:15] VITALS: BP_SYST 124; BP_SYST 128; BP_DIAS 66; BP_DIAS 72; TEMP 97.3; TEMP 98.2; O2SAT 97; O2SAT 99
[2024-01-10 14:24] VITALS: BP 118/80; TEMP 98.6; O2SAT 97
[2024-01-10] MEDS: HALOPERIDOL LACTATE 5MG/ML VIAL IM PRN (18:55)
[2024-01-10] MEDS: HALOPERIDOL LACTATE 5MG/ML VIAL IM ONE (19:05)
[2024-01-10] MEDS ORDERED: LORazepam 2 MG/ML 1ML VIAL IM STA ×2 (19:10→19:13)
[2024-01-10 21:05] VITALS: BP 129/83; TEMP 98.4; O2SAT 97
[2024-01-11 06:09] VITALS: BP 122/82; TEMP 97.7; O2SAT 97
[2024-01-11] MEDS: LORazepam 2 MG/ML 1ML VIAL IM STA (06:55)
[2024-01-11] MEDS: OLANZapine ORAL DISINTEGRATING TAB 5MG PO PRN (13:36)
[2024-01-11] MEDS: QUEtiapine FUMARATE 25 MG TAB PO SCH (14:51)
[2024-01-11] MEDS ORDERED: QUEtiapine FUMARATE 25 MG TAB PO SCH (15:00)
[2024-01-11 15:21] VITALS: BP 144/90; TEMP 98.4; O2SAT 94
[2024-01-11] MEDS: RIVAROXABAN 10MG TAB (XARELTO) PO SCH (16:58)
[2024-01-11] MEDS: QUEtiapine FUMARATE 50MG TAB PO SCH (19:13)
[2024-01-11] MEDS: SENOKOT S TAB PO SCH (19:13)
[2024-01-11 19:14] VITALS: BP 132/82; TEMP 98.2; O2SAT 95
[2024-01-11] MEDS: HALOPERIDOL LACTATE 5MG/ML VIAL IM PRN (19:47)
[2024-01-11] MEDS: LORazepam 2 MG/ML 1ML VIAL IM PRN (20:48)
[2024-01-11 20:49] VITALS: BP 142/80; O2SAT 96
[2024-01-12 06:37] VITALS: BP 131/79; TEMP 97.5; O2SAT 97
[2024-01-12] MEDS: DOCUSATE SODIUM 100MG CAPSULE PO SCH (09:00)
[2024-01-12 14:00] VITALS: BP 126/91; TEMP 98.1; O2SAT 97
[2024-01-12] MEDS: OLANZapine 5 MG TAB PO PRN (16:30)
[2024-01-12 22:00] VITALS: BP 132/88; TEMP 97.5; O2SAT 100
[2024-01-13 14:00] VITALS: BP 131/88; TEMP 97.7; O2SAT 99
[2024-01-13] MEDS ORDERED: diphenhydrAMINE 50MG/ML VIAL As Ordered ONE (18:20)
[2024-01-13] MEDS: diphenhydrAMINE 50MG/ML VIAL IM STA (18:26)
[2024-01-13 19:57] VITALS: BP 111/81; TEMP 98.4; O2SAT 97
[2024-01-14 04:50] VITALS: BP 124/74; TEMP 97; O2SAT 94
[2024-01-14] MEDS: ACETAMINOPHEN TAB 650MG DOSE (2X325MG) PO PRN (08:50)
[2024-01-14 14:00] VITALS: BP 117/85; TEMP 97.3; O2SAT 98
[2024-01-14] MEDS: QUEtiapine FUMARATE 50MG TAB PO SCH (14:37)
[2024-01-14 21:30] VITALS: BP 118/85; TEMP 97.9
[2024-01-15 06:00] VITALS: BP 119/62; TEMP 97.5; O2SAT 96
[2024-01-15] MEDS: QUEtiapine FUMARATE 25 MG TAB PO SCH (08:14)
[2024-01-15 14:00] VITALS: BP 130/94; TEMP 98.1; O2SAT 93
[2024-01-16] MEDS: diphenhydrAMINE 50MG/ML VIAL IM ONE (00:28)
[2024-01-16 05:58] VITALS: BP 112/69; TEMP 97.7; O2SAT 95
[2024-01-16 14:00] VITALS: BP 114/80; TEMP 97.9; O2SAT 98
[2024-01-16 20:03] VITALS: BP 133/100; TEMP 98.1; O2SAT 97
[2024-01-16 20:48] VITALS: BP 120/78; TEMP 98.6; O2SAT 96
[2024-01-16 22:55] LABS: BLOOD UREA NITROGEN 15 MG/DL (9-23); CALCIUM LEVEL 8.9 MG/DL (8.3-10.6); CARBON DIOXIDE LEVEL 27 MMOL/L (20-31); CHLORIDE LEVEL 106 MMOL/L (98-107); CREATININE FOR GFR 0.97 MG/DL (0.70-1.30); GLOMERULAR FILTRATION RATE > 60.0 (>42); GLUCOSE, FASTING 99 MG/DL (74-106); POTASSIUM SERUM 4.1 MMOL/L (3.5-5.1); SODIUM LEVEL 139 MMOL/L (136-145)
[2024-01-17 05:30] VITALS: BP 128/84; TEMP 97.9; O2SAT 97
[2024-01-17 14:00] VITALS: BP 152/91; TEMP 97.9; O2SAT 95
[2024-01-17] MEDS: LORazepam 0.5 MG TAB PO SCH (21:57)
[2024-01-17 22:00] VITALS: BP 152/91; TEMP 97.9; O2SAT 95
[2024-01-18 05:54] VITALS: BP 118/78; TEMP 97.7; O2SAT 98
[2024-01-18 14:00] VITALS: BP 111/79; TEMP 97.9; O2SAT 93
[2024-01-18] MEDS ORDERED: QUEtiapine FUMARATE 25 MG TAB PO SCH (16:00)
[2024-01-18] MEDS: QUEtiapine FUMARATE 50MG TAB PO ONE (17:01)
[2024-01-18] MEDS: QUEtiapine FUMARATE 25 MG TAB PO SCH (19:51)
[2024-01-18] MEDS: VALPROIC ACID 250MG CAP PO SCH (19:52)
[2024-01-19 07:02] VITALS: BP 134/79; TEMP 98.2; O2SAT 95
[2024-01-19 14:00] VITALS: BP 126/77; TEMP 98.6; O2SAT 96
[2024-01-19] MEDS: LORazepam 0.5 MG TAB PO PRN (18:55)
[2024-01-19 21:40] VITALS: BP 122/78; TEMP 98.1; O2SAT 95
[2024-01-20 07:00] VITALS: BP 122/77; TEMP 98.4; O2SAT 97
[2024-01-20 14:22] VITALS: BP 132/81; TEMP 98.6; O2SAT 97
[2024-01-20 20:45] VITALS: BP 141/81; TEMP 98.1; O2SAT 96
[2024-01-21 06:00] VITALS: BP 136/84; TEMP 97.9; O2SAT 96
[2024-01-21 14:00] VITALS: BP 129/78; TEMP 97.9; O2SAT 96
[2024-01-21 22:00] VITALS: BP 128/79; TEMP 98.1; O2SAT 97
[2024-01-22 05:22] VITALS: BP 138/89; TEMP 98.2; O2SAT 96
[2024-01-22 06:00] VITALS: BP 128/79; TEMP 98.1; O2SAT 97
[2024-01-22 14:00] VITALS: BP 142/86; TEMP 98.3; O2SAT 97
[2024-01-22 22:00] VITALS: BP 152/89; TEMP 97.2; O2SAT 96
[2024-01-23 06:00] VITALS: BP 111/55; TEMP 97.7; O2SAT 95
[2024-01-23 14:00] VITALS: BP 124/82; TEMP 97; O2SAT 97
[2024-01-23 20:30] VITALS: BP 116/95; TEMP 97.7; O2SAT 100
[2024-01-24 09:19] LABS: HEMATOCRIT 44.9 % (42.0-52.0); MEAN CORPUSCULAR HEMOGLOBIN 31.4 pg (27.0-33.0); MEAN CORPUSCULAR HGB CONC 33.4 g/dl (32.0-36.5); MEAN CORPUSCULAR VOLUME 93.9 fl (80.0-96.0); PLATELET COUNT, AUTOMATED 259 10^3/uL (150-450); RED BLOOD COUNT 4.78 10^6/uL (4.30-6.10); WHITE BLOOD COUNT 8.2 10^3/uL (4.0-10.0)
[2024-01-24 09:44] LABS: ALBUMIN 3.7 G/DL (3.2-5.2); ALKALINE PHOSPHATASE 66 U/L (46-116); ALT/SGPT 40 U/L (7.0-40); AST/SGOT 42 U/L (<34); BILIRUBIN,TOTAL 0.7 MG/DL (0.3-1.2); BLOOD UREA NITROGEN 22 MG/DL (9-23); CALCIUM LEVEL 9.3 MG/DL (8.3-10.6); CARBON DIOXIDE LEVEL 30 MMOL/L (20-31); CHLORIDE LEVEL 109 MMOL/L (98-107); CREATININE FOR GFR 0.99 MG/DL (0.70-1.30); GLOMERULAR FILTRATION RATE > 60.0 (>42); GLUCOSE, FASTING 92 MG/DL (74-106); POTASSIUM SERUM 4.3 MMOL/L (3.5-5.1); SODIUM LEVEL 145 MMOL/L (136-145); TOTAL PROTEIN 6.8 G/DL (5.7-8.2)
[2024-01-24 14:00] VITALS: BP 116/76; TEMP 98.6; O2SAT 99
[2024-01-24 22:00] VITALS: BP 124/70; TEMP 97; O2SAT 92
[2024-01-25] MEDS: ATORVASTATIN 10 MG TAB PO SCH (11:08)
[2024-01-25 14:00] VITALS: BP 129/77; TEMP 97.7
[2024-01-26 07:07] VITALS: BP 111/66; TEMP 97.5; O2SAT 98
[2024-01-26] MEDS: QUEtiapine FUMARATE 50MG TAB PO SCH (17:41)
[2024-01-26] MEDS: BREXPIPRAZOLE 0.5MG TABLET (REXULTI) PO SCH (21:24)
[2024-01-26 21:45] VITALS: BP 111/92; TEMP 98.1; O2SAT 97
[2024-01-27 05:00] VITALS: BP 115/85; TEMP 97.3; O2SAT 99
[2024-01-27 14:00] VITALS: BP 127/86; TEMP 98.1; O2SAT 95
[2024-01-27] MEDS: RAMELTEON 8 MG TAB (ROZEREM) PO PRN (19:36)
[2024-01-27 22:00] VITALS: BP 143/99; TEMP 97.9; O2SAT 96
[2024-01-28 08:27] LABS: APPEARANCE, URINE HAZY (CLEAR); BACTERIA, URINE AUTO 1+ (NEGATIVE); BILIRUBIN, URINE AUTO NEGATIVE (NEGATIVE); BLOOD, URINE BLOOD 1+ (NEGATIVE); COLOR, URINE AMBER (YELLOW); GLUCOSE, URINE (UA) AUTO NEGATIVE (NEGATIVE); KETONE, URINE AUTO 1+ mg/dL (NEGATIVE); LEUKOCYTE ESTERASE, URINE AUTO NEGATIVE (NEGATIVE); MUCUS, URINE MODERATE (NEGATIVE); NITRITE, URINE AUTO NEGATIVE (NEGATIVE); PROTEIN, URINE AUTO 1+ mg/dL (NEGATIVE); RBC, URINE AUTO 5 /HPF (0-3); SPECIFIC GRAVITY URINE AUTO 1.029 (1.002-1.035); SQUAMOUS EPITHELIAL CELL UR AU 0 /HPF (0-6); UROBILINOGEN, URINE AUTO 0.2 mg/dL (0.0-2.0); WBC, URINE AUTO 2 /HPF (0-3)
[2024-01-28 15:36] VITALS: BP 124/86; TEMP 98.6; O2SAT 92
[2024-01-28] MEDS: RAMELTEON 8 MG TAB (ROZEREM) PO SCH (19:25)
[2024-01-28 22:00] VITALS: BP 121/83; TEMP 98.2; O2SAT 95
[2024-01-29 06:00] VITALS: BP 125/74; TEMP 97.9; O2SAT 93
[2024-01-29 19:30] VITALS: BP 124/95; TEMP 97.7; O2SAT 96
[2024-01-30 06:10] VITALS: BP 134/88; TEMP 97.2; O2SAT 94
[2024-01-30 07:05] LABS: MEAN CORPUSCULAR HEMOGLOBIN 32.3 pg (27.0-33.0); MEAN CORPUSCULAR HGB CONC 34.1 g/dl (32.0-36.5); MEAN CORPUSCULAR VOLUME 94.5 fl (80.0-96.0); PLATELET COUNT, AUTOMATED 214 10^3/uL (150-450); RED BLOOD COUNT 4.34 10^6/uL (4.30-6.10); WHITE BLOOD COUNT 5.8 10^3/uL (4.0-10.0)
[2024-01-30 07:38] LABS: ALBUMIN 3.4 G/DL (3.2-5.2); ALKALINE PHOSPHATASE 56 U/L (46-116); ALT/SGPT 42 U/L (7.0-40); AST/SGOT 31 U/L (<34); BILIRUBIN,TOTAL 0.6 MG/DL (0.3-1.2); BLOOD UREA NITROGEN 24 MG/DL (9-23); CALCIUM LEVEL 8.6 MG/DL (8.3-10.6); CARBON DIOXIDE LEVEL 32 MMOL/L (20-31); CHLORIDE LEVEL 109 MMOL/L (98-107); CREATININE FOR GFR 0.88 MG/DL (0.70-1.30); GLOMERULAR FILTRATION RATE > 60.0 (>42); GLUCOSE, FASTING 89 MG/DL (74-106); POTASSIUM SERUM 3.4 MMOL/L (3.5-5.1); SODIUM LEVEL 146 MMOL/L (136-145); TOTAL PROTEIN 6.3 G/DL (5.7-8.2)
[2024-01-30] MEDS ORDERED: POTASSIUM CHLORIDE 10MEQ SR TABLET PO ONE (08:00)
[2024-01-30] MEDS: POTASSIUM CHLORIDE 10% LIQ 20MEQ/15ML UDC PO ONE (09:25)
[2024-01-30 14:00] VITALS: BP 117/72; TEMP 97.5; O2SAT 98
[2024-01-30 20:52] VITALS: BP 109/73; TEMP 98.1; O2SAT 97
[2024-01-31 11:04] LABS: HEMATOCRIT 40.8 % (42.0-52.0); HEMOGLOBIN 14.2 g/dl (13.5-17.5); MEAN CORPUSCULAR HEMOGLOBIN 32.1 pg (27.0-33.0); MEAN CORPUSCULAR HGB CONC 34.8 g/dl (32.0-36.5); MEAN CORPUSCULAR VOLUME 92.1 fl (80.0-96.0); PLATELET COUNT, AUTOMATED 212 10^3/uL (150-450); RED BLOOD COUNT 4.43 10^6/uL (4.30-6.10); WHITE BLOOD COUNT 6.6 10^3/uL (4.0-10.0)
[2024-01-31 11:29] LABS: ALBUMIN 3.3 G/DL (3.2-5.2); ALKALINE PHOSPHATASE 56 U/L (46-116); ALT/SGPT 36 U/L (7.0-40); AST/SGOT 23 U/L (<34); BILIRUBIN,TOTAL 0.6 MG/DL (0.3-1.2); BLOOD UREA NITROGEN 21 MG/DL (9-23); CALCIUM LEVEL 8.7 MG/DL (8.3-10.6); CARBON DIOXIDE LEVEL 27 MMOL/L (20-31); CHLORIDE LEVEL 106 MMOL/L (98-107); CREATININE FOR GFR 0.76 MG/DL (0.70-1.30); GLOMERULAR FILTRATION RATE > 60.0 (>42); GLUCOSE, FASTING 94 MG/DL (74-106); POTASSIUM SERUM 3.5 MMOL/L (3.5-5.1); SODIUM LEVEL 141 MMOL/L (136-145); TOTAL PROTEIN 6.1 G/DL (5.7-8.2)
[2024-01-31 15:24] VITALS: BP 125/73; TEMP 97.2; O2SAT 98
[2024-01-31] MEDS: QUEtiapine FUMARATE 25 MG TAB PO SCH (17:05)
[2024-01-31 20:21] VITALS: BP 118/75; TEMP 98.1; O2SAT 97
[2024-02-01] MEDS: LEVOTHYROXINE 25MCG TABLET (0.025MG) PO SCH (05:56)
[2024-02-01 14:00] VITALS: BP 116/75; TEMP 97; O2SAT 98
[2024-02-01 21:22] VITALS: BP 119/78; TEMP 96.6; O2SAT 98
[2024-02-02 07:00] VITALS: BP 133/65; TEMP 97.2; O2SAT 100
[2024-02-02] MEDS: VALPROIC ACID 250MG CAP PO SCH (13:10)
[2024-02-02] MEDS: BENZTROPINE 0.5 MG TAB PO SCH (13:10)
[2024-02-02 14:39] VITALS: BP 116/71; TEMP 98.1; O2SAT 97
[2024-02-02] MEDS: BREXPIPRAZOLE 2MG TABLET (REXULTI) PO SCH (20:08)
[2024-02-02 22:00] VITALS: BP 139/84; TEMP 97.5; O2SAT 93
[2024-02-03 06:00] VITALS: BP 119/74; TEMP 97.3; O2SAT 94
[2024-02-03 08:07] LABS: BLOOD UREA NITROGEN 24 MG/DL (9-23); CALCIUM LEVEL 9.3 MG/DL (8.3-10.6); CARBON DIOXIDE LEVEL 30 MMOL/L (20-31); CHLORIDE LEVEL 105 MMOL/L (98-107); CREATININE FOR GFR 0.93 MG/DL (0.70-1.30); GLOMERULAR FILTRATION RATE > 60.0 (>42); GLUCOSE, FASTING 89 MG/DL (74-106); SODIUM LEVEL 142 MMOL/L (136-145)
[2024-02-03 20:41] VITALS: BP 106/64; TEMP 98.6; O2SAT 83; O2SAT 93
[2024-02-04 05:00] VITALS: BP 111/53; TEMP 97.3; O2SAT 97
[2024-02-04 14:00] VITALS: BP 114/74; TEMP 97.5; O2SAT 94
[2024-02-04 20:23] VITALS: BP 128/86; TEMP 97.9; O2SAT 96
[2024-02-05 04:49] VITALS: BP 117/59; TEMP 97.3; O2SAT 95
[2024-02-05 05:08] VITALS: BP 100/56; TEMP 97.9; O2SAT 97
[2024-02-05 14:00] VITALS: BP 120/71; TEMP 97.5; O2SAT 97
[2024-02-05 19:55] VITALS: BP 123/84; TEMP 97.7; O2SAT 97
[2024-02-06 04:00] VITALS: BP 129/58; TEMP 97.5; O2SAT 96
[2024-02-06 14:00] VITALS: BP 108/70; TEMP 97; O2SAT 97
[2024-02-06 20:00] VITALS: BP 134/82; TEMP 98.2; O2SAT 92
[2024-02-07 06:00] VITALS: BP 130/77; TEMP 97.7; O2SAT 93
[2024-02-07 14:00] VITALS: BP 129/75; TEMP 97.9; O2SAT 98
[2024-02-07 20:00] VITALS: BP 96/57; TEMP 97.5; O2SAT 95
[2024-02-08 06:00] VITALS: BP 168/81; TEMP 98; O2SAT 96
[2024-02-08 14:00] VITALS: TEMP 97.3; O2SAT 97
[2024-02-08 20:00] VITALS: BP 151/68; TEMP 98.1; O2SAT 99
[2024-02-09] MEDS: HALOPERIDOL LACTATE 5MG/ML VIAL IM PRN (00:33)
[2024-02-09 05:30] VITALS: BP 140/79; TEMP 98.2; O2SAT 96
[2024-02-09 07:52] VITALS: BP 154/67; TEMP 97.7; O2SAT 97
[2024-02-09] MEDS ORDERED: LORazepam 2 MG/ML 1ML VIAL IV PRN (08:20)
[2024-02-09 09:22] LABS: BASO # 0.1 10^3/uL (0.0-0.2); BASO % 0.8 % (0.0-1.0); EOS # 0.2 10^3/uL (0.0-0.5); EOS % 2.7 % (0.0-3.0); HEMATOCRIT 43.5 % (42.0-52.0); HEMOGLOBIN 14.9 g/dl (13.5-17.5); LYMPH # 1.5 10^3/uL (1.5-5.0); LYMPH % 19.5 % (24.0-44.0); MEAN CORPUSCULAR HEMOGLOBIN 31.8 pg (27.0-33.0); MEAN CORPUSCULAR HGB CONC 34.3 g/dl (32.0-36.5); MEAN CORPUSCULAR VOLUME 92.9 fl (80.0-96.0); MONO # 0.8 10^3/uL (0.0-0.8); MONO % 11.2 % (2.0-8.0); NEUTROPHILS # 4.9 10^3/uL (1.5-8.5); NEUTROPHILS % 65.1 % (36.0-66.0); PLATELET COUNT, AUTOMATED 217 10^3/uL (150-450); RED BLOOD COUNT 4.68 10^6/uL (4.30-6.10); WHITE BLOOD COUNT 7.5 10^3/uL (4.0-10.0)
[2024-02-09 09:28] LABS: ERYTHROCYTE SEDIMENTATION RATE 13 mm/hr (0-20)
[2024-02-09 09:53] LABS: C REACTIVE PROTEIN QUANTITATIV < 0.40 MG/DL (<1.0)
[2024-02-09 09:54] LABS: ALBUMIN 3.2 G/DL (3.2-5.2); ALKALINE PHOSPHATASE 53 U/L (46-116); ALT/SGPT 28 U/L (7.0-40); AST/SGOT 38 U/L (<34); BILIRUBIN,TOTAL 0.5 MG/DL (0.3-1.2); BLOOD UREA NITROGEN 32 MG/DL (9-23); CALCIUM LEVEL 8.8 MG/DL (8.3-10.6); CARBON DIOXIDE LEVEL 29 MMOL/L (20-31); CHLORIDE LEVEL 111 MMOL/L (98-107); CPK CREATINE PHOSPHOKINASE 426 U/L (46-171); CREATININE FOR GFR 0.92 MG/DL (0.70-1.30); GLOMERULAR FILTRATION RATE > 60.0 (>42); GLUCOSE, FASTING 87 MG/DL (74-106); POTASSIUM SERUM 3.9 MMOL/L (3.5-5.1); SODIUM LEVEL 147 MMOL/L (136-145); TOTAL PROTEIN 6.3 G/DL (5.7-8.2)
[2024-02-09 09:57] LABS: PROLACTIN 13.21 NG/ML (2.1-17.7)
[2024-02-09 10:01] LABS: PROCALCITONIN <0.04 ng/ml
[2024-02-09 10:08] LABS: ABG BASE EXCESS 0.4 (-2.0-2.0); ABG HCO3 24.9 MMOL/L (22.0-26.0); ABG O2 SATURATION 95.2 % (95.0-99.0); ABG PARTIAL PRESSURE O2 75.8 mmHg (75.0-100.0); ABG STANDARD HCO3 24.7 MMOL/L. (22.0-26.0); ABG TOTAL CO2 26.1 MMOL/L (23.0-31.0); ABG pH (ARTERIAL) 7.412 UNITS (7.350-7.450)
[2024-02-09] MEDS: levETIRAcetam INJection 1,000 MG in D5W 100 ML IV SCH (10:24)
[2024-02-09 12:52] VITALS: BP 141/80; TEMP 97.9; O2SAT 94
[2024-02-09 22:00] VITALS: BP 138/81; TEMP 98; O2SAT 96
[2024-02-10 05:30] VITALS: BP 109/69; TEMP 98.2; O2SAT 94
[2024-02-10 14:00] VITALS: BP 120/75; TEMP 97.7; O2SAT 86
[2024-02-10] MEDS: LORazepam 2 MG/ML 1ML VIAL IM STA (15:25)
[2024-02-10 22:00] VITALS: BP 117/61; TEMP 97.5; O2SAT 98
[2024-02-11 05:49] VITALS: BP 142/73; TEMP 97.9; O2SAT 95
[2024-02-11] MEDS: DOCUSATE SOD LIQ 100MG/10ML UDC PO SCH (13:20)
[2024-02-11] MEDS: VALPROIC ACID PO SCH (13:20)
[2024-02-11 14:00] VITALS: BP 123/74; TEMP 97.7; O2SAT 93
[2024-02-11 22:01] VITALS: BP 133/82; TEMP 97.5; O2SAT 96
[2024-02-12 06:00] VITALS: BP 130/86; TEMP 98.1; O2SAT 97
[2024-02-12 12:52] LABS: ABG BASE EXCESS 2.3 (-2.0-2.0); ABG HCO3 25.6 MMOL/L (22.0-26.0); ABG O2 SATURATION 96.5 % (95.0-99.0); ABG PARTIAL PRESSURE CO2 35.8 mmHg (35.0-45.0); ABG PARTIAL PRESSURE O2 81.1 mmHg (75.0-100.0); ABG STANDARD HCO3 26.5 MMOL/L. (22.0-26.0); ABG TOTAL CO2 26.7 MMOL/L (23.0-31.0); ABG pH (ARTERIAL) 7.472 UNITS (7.350-7.450)
[2024-02-12 14:00] VITALS: BP 126/85; TEMP 98.1; O2SAT 92
[2024-02-12 20:00] VITALS: BP 122/58; TEMP 99.5; O2SAT 94
[2024-02-13 04:00] VITALS: BP 140/80; TEMP 98.5; O2SAT 98
[2024-02-13] MEDS: NS 0.45% 1,000 ML IV ONE (11:32)
[2024-02-13 11:40] LABS: BASO # 0.1 10^3/uL (0.0-0.2); EOS # 0.2 10^3/uL (0.0-0.5); EOS % 1.7 % (0.0-3.0); HEMATOCRIT 44.6 % (42.0-52.0); HEMOGLOBIN 15.4 g/dl (13.5-17.5); LYMPH # 1.5 10^3/uL (1.5-5.0); LYMPH % 14.3 % (24.0-44.0); MEAN CORPUSCULAR HEMOGLOBIN 31.9 pg (27.0-33.0); MEAN CORPUSCULAR HGB CONC 34.5 g/dl (32.0-36.5); MEAN CORPUSCULAR VOLUME 92.3 fl (80.0-96.0); MONO # 0.9 10^3/uL (0.0-0.8); MONO % 7.9 % (2.0-8.0); NEUTROPHILS % 74.6 % (36.0-66.0); PLATELET COUNT, AUTOMATED 227 10^3/uL (150-450); RED BLOOD COUNT 4.83 10^6/uL (4.30-6.10); WHITE BLOOD COUNT 10.7 10^3/uL (4.0-10.0)
[2024-02-13 11:48] LABS: ERYTHROCYTE SEDIMENTATION RATE 18 mm/hr (0-20)
[2024-02-13 12:00] VITALS: BP 116/64; TEMP 97.2; O2SAT 93
[2024-02-13 12:14] LABS: ALBUMIN 3.3 G/DL (3.2-5.2); ALKALINE PHOSPHATASE 56 U/L (46-116); ALT/SGPT 26 U/L (7.0-40); AST/SGOT 23 U/L (<34); BILIRUBIN,DIRECT 0.2 MG/DL (<0.4); BILIRUBIN,TOTAL 0.7 MG/DL (0.3-1.2); BLOOD UREA NITROGEN 28 MG/DL (9-23); CALCIUM LEVEL 9.1 MG/DL (8.3-10.6); CARBON DIOXIDE LEVEL 27 MMOL/L (20-31); CHLORIDE LEVEL 110 MMOL/L (98-107); CREATININE FOR GFR 0.79 MG/DL (0.70-1.30); GLOMERULAR FILTRATION RATE > 60.0 (>42); GLUCOSE, FASTING 109 MG/DL (74-106); POTASSIUM SERUM 3.9 MMOL/L (3.5-5.1); SODIUM LEVEL 144 MMOL/L (136-145); TOTAL PROTEIN 6.5 G/DL (5.7-8.2)
[2024-02-13 12:52] LABS: PROCALCITONIN 0.06 ng/ml
[2024-02-13 22:00] VITALS: BP 112/86; TEMP 97.3; O2SAT 94
[2024-02-14 04:45] VITALS: BP 131/77; TEMP 97.3; O2SAT 95
[2024-02-14 12:00] VITALS: BP 95/53; TEMP 97.3; O2SAT 90
[2024-02-14 20:00] VITALS: BP 125/84; TEMP 97.2; O2SAT 94
[2024-02-14 23:00] VITALS: BP 140/75; TEMP 97.2; O2SAT 99
[2024-02-15 04:00] VITALS: BP 119/82; TEMP 97.3; O2SAT 93
[2024-02-15 12:00] VITALS: BP 136/69; TEMP 97.5; O2SAT 95
[2024-02-15] MEDS: levETIRAcetam 250MG TABLET (KEPPRA) PO SCH (13:20)
[2024-02-15 14:02] LABS: BASO # 0.1 10^3/uL (0.0-0.2); BASO % 1.5 % (0.0-1.0); EOS # 0.4 10^3/uL (0.0-0.5); EOS % 5.7 % (0.0-3.0); HEMATOCRIT 45.4 % (42.0-52.0); HEMOGLOBIN 15.6 g/dl (13.5-17.5); LYMPH # 1.4 10^3/uL (1.5-5.0); LYMPH % 20.8 % (24.0-44.0); MEAN CORPUSCULAR HEMOGLOBIN 31.6 pg (27.0-33.0); MEAN CORPUSCULAR HGB CONC 34.4 g/dl (32.0-36.5); MEAN CORPUSCULAR VOLUME 91.9 fl (80.0-96.0); MONO # 0.6 10^3/uL (0.0-0.8); MONO % 9.1 % (2.0-8.0); NEUTROPHILS # 4.3 10^3/uL (1.5-8.5); NEUTROPHILS % 62.6 % (36.0-66.0); PLATELET COUNT, AUTOMATED 236 10^3/uL (150-450); RED BLOOD COUNT 4.94 10^6/uL (4.30-6.10); WHITE BLOOD COUNT 6.8 10^3/uL (4.0-10.0)
[2024-02-15 14:36] LABS: BLOOD UREA NITROGEN 21 MG/DL (9-23); CALCIUM LEVEL 9.2 MG/DL (8.3-10.6); CARBON DIOXIDE LEVEL 26 MMOL/L (20-31); CHLORIDE LEVEL 111 MMOL/L (98-107); CREATININE FOR GFR 0.73 MG/DL (0.70-1.30); GLOMERULAR FILTRATION RATE > 60.0 (>42); GLUCOSE, FASTING 112 MG/DL (74-106); POTASSIUM SERUM 3.7 MMOL/L (3.5-5.1); SODIUM LEVEL 144 MMOL/L (136-145)
[2024-02-15] MEDS: LACTULOSE 20GM/30ML SYRUP UDC PO SCH (17:40)
[2024-02-15 19:49] VITALS: BP 127/72; TEMP 97.5; O2SAT 93
[2024-02-16] VITALS: BP 106/44; TEMP 96.9; O2SAT 95
[2024-02-16 04:00] VITALS: BP 137/81; TEMP 97.3; O2SAT 93
[2024-02-16 06:37] LABS: BLOOD UREA NITROGEN 21 MG/DL (9-23); CALCIUM LEVEL 8.9 MG/DL (8.3-10.6); CARBON DIOXIDE LEVEL 26 MMOL/L (20-31); CHLORIDE LEVEL 113 MMOL/L (98-107); CREATININE FOR GFR 0.79 MG/DL (0.70-1.30); GLOMERULAR FILTRATION RATE > 60.0 (>42); GLUCOSE, FASTING 96 MG/DL (74-106); POTASSIUM SERUM 4.3 MMOL/L (3.5-5.1); SODIUM LEVEL 148 MMOL/L (136-145)
[2024-02-16 12:00] VITALS: BP 135/84; TEMP 97.7; O2SAT 93
[2024-02-16] MEDS: NS 0.45% 1,000 ML IV ONE (12:12)
[2024-02-16] MEDS: NS 0.45% 1,000 ML IV SCH (13:17)
[2024-02-16] MEDS: LACTULOSE 20GM/30ML SYRUP UDC PR ONE (15:20)
[2024-02-16 19:06] LABS: BLOOD UREA NITROGEN 22 MG/DL (9-23); CALCIUM LEVEL 8.9 MG/DL (8.3-10.6); CARBON DIOXIDE LEVEL 26 MMOL/L (20-31); CHLORIDE LEVEL 112 MMOL/L (98-107); CREATININE FOR GFR 0.79 MG/DL (0.70-1.30); GLOMERULAR FILTRATION RATE > 60.0 (>42); GLUCOSE, FASTING 84 MG/DL (74-106); POTASSIUM SERUM 3.9 MMOL/L (3.5-5.1); SODIUM LEVEL 147 MMOL/L (136-145)
[2024-02-16 20:00] VITALS: BP_SYST 134; BP_SYST 139; BP_DIAS 69; BP_DIAS 75; TEMP 97.7; O2SAT 97
[2024-02-17 00:20] LABS: BLOOD UREA NITROGEN 20 MG/DL (9-23); CALCIUM LEVEL 8.7 MG/DL (8.3-10.6); CARBON DIOXIDE LEVEL 25 MMOL/L (20-31); CHLORIDE LEVEL 110 MMOL/L (98-107); CREATININE FOR GFR 0.76 MG/DL (0.70-1.30); GLOMERULAR FILTRATION RATE > 60.0 (>42); GLUCOSE, FASTING 83 MG/DL (74-106); POTASSIUM SERUM 4.4 MMOL/L (3.5-5.1); SODIUM LEVEL 143 MMOL/L (136-145)
[2024-02-17 04:00] VITALS: BP 157/83; TEMP 97.3; O2SAT 99
[2024-02-17 12:00] VITALS: BP 114/73; TEMP 97.3; O2SAT 90
[2024-02-17 22:00] VITALS: BP 120/77; TEMP 97.3; O2SAT 98
[2024-02-18 04:00] VITALS: BP 124/80; TEMP 97.7; O2SAT 98
[2024-02-18 12:00] VITALS: BP 150/73; TEMP 97.7; O2SAT 96
[2024-02-18 20:17] VITALS: BP 121/67; TEMP 97; O2SAT 98
[2024-02-19 03:46] VITALS: BP 121/61; TEMP 97; O2SAT 94
[2024-02-19 12:00] VITALS: BP 124/72; TEMP 97.7; O2SAT 90
[2024-02-19 20:00] VITALS: BP 107/70; TEMP 97.3; O2SAT 97
[2024-02-19] MEDS: RAMELTEON 8 MG TAB (ROZEREM) PO PRN (22:35)
[2024-02-20 04:24] VITALS: BP 115/61; TEMP 97; O2SAT 98
[2024-02-20 12:45] VITALS: BP 112/68; TEMP 98.1; O2SAT 98
[2024-02-20 20:00] VITALS: BP 119/75; TEMP 97.3; O2SAT 96
[2024-02-21 04:00] VITALS: BP 107/59; TEMP 98.1; O2SAT 93
[2024-02-21 12:00] VITALS: BP 101/55; TEMP 97.5; O2SAT 94
[2024-02-21 21:30] VITALS: BP 93/59; TEMP 97.5; O2SAT 94
[2024-02-21] MEDS: MOM 30ML SUSPENSION UDC PO PRN (21:36)
[2024-02-22 05:08] VITALS: BP 132/60; TEMP 97.3; O2SAT 58; O2SAT 93
[2024-02-22 12:00] VITALS: BP 98/57; TEMP 97.5; O2SAT 94
[2024-02-22 19:50] VITALS: BP 106/77; TEMP 97.3; O2SAT 93
[2024-02-22] MEDS: VALPROIC ACID PO SCH (21:32)
[2024-02-23 03:40] VITALS: BP 121/72; TEMP 97.7; O2SAT 96
[2024-02-23] MEDS: VALPROIC ACID 500MG/10ML SOL ORAL SYRINGE PO SCH (07:51)
[2024-02-23 12:00] VITALS: BP 169/89; TEMP 98.1; O2SAT 100
[2024-02-23 20:53] VITALS: BP 138/73; TEMP 98.1; O2SAT 97
[2024-02-24 04:00] VITALS: BP 106/67; TEMP 97.7; O2SAT 75; O2SAT 95
[2024-02-24 12:00] VITALS: BP 124/71; TEMP 98.1; O2SAT 97
[2024-02-24 20:38] VITALS: BP 108/68; TEMP 97.9; O2SAT 96
[2024-02-25 04:21] VITALS: BP 104/66; TEMP 98.1; O2SAT 95
[2024-02-25 10:00] VITALS: BP 110/62
[2024-02-25] MEDS: BENZTROPINE 0.5 MG TAB PO SCH (10:17)
[2024-02-25 11:43] VITALS: BP 113/58; TEMP 98.6; O2SAT 93
[2024-02-25 20:00] VITALS: BP 120/78; TEMP 98.1; O2SAT 90
[2024-02-26 03:40] VITALS: BP 107/70; TEMP 97.9; O2SAT 98
[2024-02-26 11:48] VITALS: BP 115/71; TEMP 98.1; O2SAT 98
[2024-02-26 19:40] VITALS: BP 119/86; TEMP 98.1; O2SAT 95
[2024-02-27 03:10] VITALS: BP 124/78; TEMP 97.7; O2SAT 98
[2024-02-27 07:34] LABS: HEMATOCRIT 42.5 % (42.0-52.0); HEMOGLOBIN 14.4 g/dl (13.5-17.5); MEAN CORPUSCULAR HEMOGLOBIN 31.6 pg (27.0-33.0); MEAN CORPUSCULAR HGB CONC 33.9 g/dl (32.0-36.5); MEAN CORPUSCULAR VOLUME 93.4 fl (80.0-96.0); PLATELET COUNT, AUTOMATED 209 10^3/uL (150-450); RED BLOOD COUNT 4.55 10^6/uL (4.30-6.10); WHITE BLOOD COUNT 6.6 10^3/uL (4.0-10.0)
[2024-02-27 08:03] LABS: BLOOD UREA NITROGEN 18 MG/DL (9-23); CARBON DIOXIDE LEVEL 30 MMOL/L (20-31); CHLORIDE LEVEL 106 MMOL/L (98-107); CREATININE FOR GFR 1.02 MG/DL (0.70-1.30); GLOMERULAR FILTRATION RATE > 60.0 (>42); GLUCOSE, FASTING 101 MG/DL (74-106); POTASSIUM SERUM 4.5 MMOL/L (3.5-5.1); SODIUM LEVEL 141 MMOL/L (136-145)
[2024-02-27 12:00] VITALS: BP 114/72; TEMP 97.7; O2SAT 98
[2024-02-27 20:32] VITALS: BP 134/67; TEMP 97.9; O2SAT 96
[2024-02-27] MEDS: BREXPIPRAZOLE 0.5MG TABLET (REXULTI) PO SCH (21:09)
[2024-02-28 05:01] VITALS: BP 133/75; TEMP 97.7; O2SAT 97
[2024-02-28 12:00] VITALS: BP 131/77; TEMP 97.5; O2SAT 95
[2024-02-28 20:28] VITALS: BP 132/76; TEMP 98.1; O2SAT 95
[2024-02-29 04:54] VITALS: BP 122/75; TEMP 97; O2SAT 94
[2024-02-29 12:00] VITALS: BP 111/65; TEMP 97.3; O2SAT 97
[2024-02-29 20:25] VITALS: BP 137/76; TEMP 98.1; O2SAT 97
[2024-02-29] MEDS: VALPROIC ACID 500MG/10ML SOL ORAL SYRINGE PO SCH (20:42)
[2024-02-29] MEDS ORDERED: VALPROIC ACID 250MG CAP PO SCH (21:00)
[2024-03-01 04:59] VITALS: BP 108/56; TEMP 97.5; O2SAT 96
[2024-03-01 12:00] VITALS: BP 102/59; TEMP 97.3; O2SAT 97
[2024-03-01 20:26] VITALS: BP 138/84; TEMP 98.2; O2SAT 95
[2024-03-02 03:46] VITALS: BP 106/56; TEMP 97.9; O2SAT 97
[2024-03-02 12:00] VITALS: BP 105/64; TEMP 97.5; O2SAT 96
[2024-03-02 20:14] VITALS: BP 119/68; TEMP 98.1; O2SAT 95
[2024-03-03 03:23] VITALS: BP 119/58; TEMP 98.4; O2SAT 98
[2024-03-03] MEDS: MYCOLOG CREAM 15GM (NYSTATIN/TRIAMCINOLONE) TOP SCH (09:00)
[2024-03-03 12:00] VITALS: BP 119/66; TEMP 97.9; O2SAT 99
[2024-03-03 19:56] VITALS: BP 115/74; TEMP 98.1; O2SAT 95
[2024-03-04 03:58] VITALS: BP 123/68; TEMP 97.7; O2SAT 96
[2024-03-04 12:00] VITALS: BP 123/93; TEMP 97.7; O2SAT 96
[2024-03-04 20:58] VITALS: BP 111/74; TEMP 97.9; O2SAT 98
[2024-03-05 03:49] VITALS: BP 112/58; TEMP 98.1; O2SAT 96
[2024-03-05 12:00] VITALS: BP 120/81; TEMP 98.2; O2SAT 96
[2024-03-05 20:00] VITALS: BP 126/77; TEMP 97.9; O2SAT 92
[2024-03-06 04:00] VITALS: BP 117/84; TEMP 97.3; O2SAT 95
[2024-03-06 12:00] VITALS: BP 103/67; TEMP 97.4; O2SAT 96
[2024-03-06 20:00] VITALS: BP 118/66; TEMP 98.1; O2SAT 97
[2024-03-07 04:00] VITALS: BP 121/76; TEMP 97.7; O2SAT 95
[2024-03-07 06:46] LABS: BASO # 0.1 10^3/uL (0.0-0.2); BASO % 0.9 % (0.0-1.0); EOS # 0.4 10^3/uL (0.0-0.5); EOS % 6.6 % (0.0-3.0); HEMOGLOBIN 14.5 g/dl (13.5-17.5); LYMPH # 2.2 10^3/uL (1.5-5.0); LYMPH % 33.9 % (24.0-44.0); MEAN CORPUSCULAR HEMOGLOBIN 31.5 pg (27.0-33.0); MEAN CORPUSCULAR HGB CONC 33.7 g/dl (32.0-36.5); MEAN CORPUSCULAR VOLUME 93.5 fl (80.0-96.0); MONO # 0.7 10^3/uL (0.0-0.8); MONO % 10.5 % (2.0-8.0); NEUTROPHILS % 47.6 % (36.0-66.0); PLATELET COUNT, AUTOMATED 259 10^3/uL (150-450); WHITE BLOOD COUNT 6.4 10^3/uL (4.0-10.0)
[2024-03-07 07:09] LABS: ALKALINE PHOSPHATASE 54 U/L (46-116); ALT/SGPT 51 U/L (7.0-40); AST/SGOT 35 U/L (<34); BILIRUBIN,TOTAL 0.6 MG/DL (0.3-1.2); BLOOD UREA NITROGEN 17 MG/DL (9-23); CALCIUM LEVEL 8.8 MG/DL (8.3-10.6); CARBON DIOXIDE LEVEL 28 MMOL/L (20-31); CHLORIDE LEVEL 106 MMOL/L (98-107); CREATININE FOR GFR 0.82 MG/DL (0.70-1.30); GLOMERULAR FILTRATION RATE > 60.0 (>42); GLUCOSE, FASTING 88 MG/DL (74-106); MAGNESIUM LEVEL 2.1 MG/DL (1.8-2.4); POTASSIUM SERUM 4.4 MMOL/L (3.5-5.1); SODIUM LEVEL 140 MMOL/L (136-145); TOTAL PROTEIN 6.1 G/DL (5.7-8.2)
[2024-03-07 12:00] VITALS: BP 86/62; TEMP 97.7; O2SAT 98
[2024-03-07] MEDS: VALPROIC ACID 500MG/10ML SOL ORAL SYRINGE PO SCH (21:55)
[2024-03-08 04:00] VITALS: BP 105/62; TEMP 97.3; O2SAT 94
[2024-03-08 18:25] VITALS: BP 111/73; TEMP 97.6; O2SAT 99
[2024-03-08 20:50] VITALS: BP 127/80; TEMP 97.9; O2SAT 95
[2024-03-09 04:20] VITALS: BP 123/90; TEMP 97.7; O2SAT 99
[2024-03-09 12:00] VITALS: BP 106/57; TEMP 97.3; O2SAT 97
[2024-03-09 19:20] VITALS: BP 94/56; TEMP 97.7; O2SAT 96
[2024-03-10 03:20] VITALS: BP 117/70; TEMP 98.1; O2SAT 97
[2024-03-10 11:50] VITALS: BP 119/74; TEMP 97.2; O2SAT 95
[2024-03-10 19:40] VITALS: BP 106/65; TEMP 98.2; O2SAT 94
[2024-03-11 04:10] VITALS: BP 113/60; TEMP 98.8; O2SAT 96
[2024-03-11 12:00] VITALS: BP 101/68; TEMP 97.7; O2SAT 96
[2024-03-11 20:00] VITALS: BP 111/75; TEMP 97.9; O2SAT 96
[2024-03-12 04:00] VITALS: BP 122/79; TEMP 99; O2SAT 93
[2024-03-12 12:00] VITALS: BP 133/81; TEMP 97.7; O2SAT 97
[2024-03-12 20:00] VITALS: BP 146/78; TEMP 97.9; O2SAT 93
[2024-03-13 04:00] VITALS: BP 140/80; TEMP 97.9; O2SAT 94
[2024-03-13 11:56] VITALS: BP 109/77; TEMP 97.3; O2SAT 96
[2024-03-13 20:00] VITALS: BP 128/67; TEMP 98.6; O2SAT 96
[2024-03-14 04:00] VITALS: BP 119/55; TEMP 98.2; O2SAT 94
[2024-03-14 12:00] VITALS: BP 111/72; TEMP 97.5; O2SAT 93
[2024-03-15 12:00] VITALS: BP 131/71; TEMP 97.3; O2SAT 98
[2024-03-15] MEDS: VALPROIC ACID 250MG/5ML SOL ORAL SYRINGE PO SCH (19:54)
[2024-03-15 22:00] VITALS: BP 113/62; TEMP 98.6; O2SAT 98
[2024-03-16 04:00] VITALS: BP 123/80; TEMP 97.7; O2SAT 98
[2024-03-16 12:00] VITALS: BP 113/61; TEMP 97.2; O2SAT 98
[2024-03-16 20:00] VITALS: BP 122/74; TEMP 97.7; O2SAT 97
[2024-03-17 04:20] VITALS: BP 135/79; TEMP 97.7; O2SAT 96
[2024-03-17] MEDS: VALPROIC ACID 250MG/5ML SOL ORAL SYRINGE PO SCH (08:50)
[2024-03-17 12:00] VITALS: BP 116/76; TEMP 97.7; O2SAT 97
[2024-03-17 20:00] VITALS: BP 122/81; TEMP 98.4; O2SAT 99
[2024-03-18 04:00] VITALS: BP 136/69; TEMP 97.7; O2SAT 97
[2024-03-18 12:00] VITALS: BP 130/78; TEMP 97.9; O2SAT 96
[2024-03-18 20:00] VITALS: BP 140/88; TEMP 97.7; O2SAT 96
[2024-03-19 04:09] VITALS: BP 127/74; TEMP 97.9; O2SAT 97
[2024-03-19 12:00] VITALS: BP 130/78; TEMP 98.1; O2SAT 96
[2024-03-19 20:00] VITALS: BP 126/72; TEMP 98.2; O2SAT 98
[2024-03-20 04:00] VITALS: BP 116/66; TEMP 97.9; O2SAT 97
[2024-03-20 12:00] VITALS: BP 126/81; TEMP 98.1; O2SAT 96
[2024-03-20 20:05] VITALS: BP 106/64; TEMP 98.1; O2SAT 97
[2024-03-21 04:08] VITALS: BP 129/62; TEMP 97.2; O2SAT 95
[2024-03-21 12:00] VITALS: BP 153/85; TEMP 97.9; O2SAT 94
[2024-03-21 12:30] VITALS: BP 122/66; TEMP 97.9; O2SAT 94
[2024-03-21 20:00] VITALS: BP 104/59; TEMP 97.9; O2SAT 95
[2024-03-22 04:00] VITALS: BP 102/76; TEMP 97.5; O2SAT 96
[2024-03-22 12:00] VITALS: BP 122/81; TEMP 97.9; O2SAT 98
[2024-03-22 19:20] VITALS: BP 104/67; TEMP 97.5; O2SAT 97
[2024-03-23 04:20] VITALS: BP 105/60; TEMP 97.7; O2SAT 96
[2024-03-23 12:40] VITALS: BP 111/72; TEMP 97.9; O2SAT 96
[2024-03-23 19:30] VITALS: BP 107/65; TEMP 97.7; O2SAT 97
[2024-03-23 20:00] VITALS: BP 107/65; TEMP 97.7; O2SAT 97
[2024-03-24 04:40] VITALS: BP 130/76; TEMP 97.7; O2SAT 96
[2024-03-24 08:39] VITALS: BP 125/72; TEMP 97.7; O2SAT 97
[2024-03-24 12:26] VITALS: BP 135/73; TEMP 98.1; O2SAT 95
[2024-03-24 20:00] VITALS: BP 124/71; TEMP 97.8; O2SAT 96
[2024-03-25 04:00] VITALS: BP 117/67; TEMP 97.9; O2SAT 95
[2024-03-25 07:36] VITALS: BP 119/73; TEMP 98.1; O2SAT 95
[2024-03-25 12:27] VITALS: BP 109/70; TEMP 98.1; O2SAT 95
[2024-03-25 19:46] VITALS: BP 123/69; TEMP 97.9; O2SAT 100
[2024-03-26 04:00] VITALS: BP 100/68; TEMP 98.1; O2SAT 97
[2024-03-26 12:00] VITALS: BP 113/65; TEMP 98.1; O2SAT 96
[2024-03-26 19:38] VITALS: BP 110/75; TEMP 98.2; O2SAT 95
[2024-03-27 03:53] VITALS: BP 105/61; TEMP 98.1; O2SAT 97
[2024-03-27 12:00] VITALS: BP 123/70; TEMP 98.6; O2SAT 96
[2024-03-27 20:05] VITALS: BP 110/71; TEMP 97.7; O2SAT 95
[2024-03-28 03:50] VITALS: BP 106/64; TEMP 98.2; O2SAT 97
[2024-03-28 12:00] VITALS: BP 102/57; TEMP 97.7; O2SAT 95
[2024-03-28 19:41] VITALS: BP 107/64; TEMP 98.6; O2SAT 96
[2024-03-29 03:40] VITALS: BP 124/73; TEMP 98.2; O2SAT 97
[2024-03-29 11:57] VITALS: BP 110/74; TEMP 98.1; O2SAT 96
[2024-03-29 19:49] VITALS: BP 138/83; TEMP 97.7; O2SAT 97
[2024-03-30] MEDS ORDERED: ATORVASTATIN 10 MG TAB As Ordered ONE (09:23)
[2024-03-30 12:00] VITALS: BP 130/84; TEMP 98.1; O2SAT 100
[2024-03-30 17:54] VITALS: TEMP 97.9
[2024-03-30 20:08] VITALS: BP 134/82; TEMP 97.9; O2SAT 96
[2024-03-31 04:51] VITALS: BP 111/70; TEMP 97.7; O2SAT 99
[2024-03-31 08:23] LABS: BASO % 0.4 % (0.0-1.0); EOS # 0.2 10^3/uL (0.0-0.5); EOS % 2.6 % (0.0-3.0); HEMATOCRIT 41.8 % (42.0-52.0); HEMOGLOBIN 14.2 g/dl (13.5-17.5); LYMPH # 1.8 10^3/uL (1.5-5.0); LYMPH % 25.5 % (24.0-44.0); MEAN CORPUSCULAR HEMOGLOBIN 32.1 pg (27.0-33.0); MEAN CORPUSCULAR VOLUME 94.6 fl (80.0-96.0); MONO # 0.8 10^3/uL (0.0-0.8); NEUTROPHILS # 4.1 10^3/uL (1.5-8.5); NEUTROPHILS % 60.1 % (36.0-66.0); PLATELET COUNT, AUTOMATED 356 10^3/uL (150-450); RED BLOOD COUNT 4.42 10^6/uL (4.30-6.10); WHITE BLOOD COUNT 6.9 10^3/uL (4.0-10.0)
[2024-03-31 08:49] LABS: BLOOD UREA NITROGEN 18 MG/DL (9-23); CALCIUM LEVEL 9.1 MG/DL (8.3-10.6); CARBON DIOXIDE LEVEL 29 MMOL/L (20-31); CHLORIDE LEVEL 108 MMOL/L (98-107); CREATININE FOR GFR 0.74 MG/DL (0.70-1.30); GLOMERULAR FILTRATION RATE > 60.0 (>42); GLUCOSE, FASTING 97 MG/DL (74-106); MAGNESIUM LEVEL 2.3 MG/DL (1.8-2.4); PHOSPHORUS LEVEL 4.1 MG/DL (2.4-5.1); SODIUM LEVEL 143 MMOL/L (136-145)
[2024-03-31 12:00] VITALS: BP 114/79; TEMP 97.3; O2SAT 96
[2024-03-31 20:00] VITALS: BP 122/69; TEMP 97.7; O2SAT 97
[2024-04-01 03:20] VITALS: BP 114/73; TEMP 97.9; O2SAT 96
[2024-04-01 12:00] VITALS: BP 117/74; TEMP 97; O2SAT 93
[2024-04-01 20:08] VITALS: BP 115/73; TEMP 98.1; O2SAT 96
[2024-04-02 03:48] VITALS: BP 109/66; TEMP 97.9; O2SAT 97
[2024-04-02 12:00] VITALS: BP 132/63; TEMP 97.3; O2SAT 96
[2024-04-02 19:39] VITALS: BP 113/73; TEMP 98.1; O2SAT 95
[2024-04-02 20:00] VITALS: BP 113/73; TEMP 98.1; O2SAT 95
[2024-04-03 03:43] VITALS: BP 106/67; TEMP 97.8; O2SAT 94
[2024-04-03 04:00] VITALS: BP 106/67; TEMP 97.8; O2SAT 94
[2024-04-03 12:00] VITALS: BP 114/75; TEMP 97.2; O2SAT 97
[2024-04-03 20:01] VITALS: BP 113/63; TEMP 98.1; O2SAT 97
[2024-04-04 03:57] VITALS: BP 105/62; TEMP 97.3; O2SAT 97
[2024-04-05 06:17] VITALS: BP 134/81; TEMP 97.7; O2SAT 96
[2024-04-06 04:00] VITALS: BP 121/64; TEMP 97.9; O2SAT 96
[2024-04-07 04:00] VITALS: BP 109/71; TEMP 97.7; O2SAT 96
[2024-04-07 12:00] VITALS: BP 112/74; TEMP 97.9; O2SAT 97
[2024-04-09 03:34] VITALS: BP 126/59; TEMP 98.1; O2SAT 97
[2024-04-10 04:21] VITALS: BP 119/84; TEMP 98.2; O2SAT 98
[2024-04-10] MEDS ORDERED: REXU1TAB2 PO (09:50)
[2024-04-10] MEDS ORDERED: ROZE8TAB16 PO (09:50)
[2024-04-10] MEDS ORDERED: LEVO25TA5 PO (09:50)
== END 2024-04-10 11:41 | DRG 884 ==
LOC: M ED 19:38 → M ED INP 23:54 → M MSPAV 01-08 00:52
PROVIDERS: ADMIT Internal Medicine; ATTEND Internal Medicine
DX: F03.911 Unspecified dementia, unspecified severity, with agitation (principal); G92.8 Other toxic encephalopathy; G93.41 Metabolic encephalopathy; R45.851 Suicidal ideations; E87.0 Hyperosmolality and hypernatremia; E72.20 Disorder of urea cycle metabolism, unspecified; E87.6 Hypokalemia; N48.1 Balanitis; E03.9 Hypothyroidism, unspecified; E86.0 Dehydration; E78.5 Hyperlipidemia, unspecified; K21.9 Gastro-esophageal reflux disease without esophagitis; N52.9 Male erectile dysfunction, unspecified; R91.1 Solitary pulmonary nodule; R45.1 Restlessness and agitation; Z66 Do not resuscitate; Z79.899 Other long term (current) drug therapy; Z87.891 Personal history of nicotine dependence

== ENCOUNTER → 2024-04-26 | Outpatient (REF) | payer MEDICARE ==
[~2024-04-26] MED LIST changes: +ACET325C5 PO; +ACET32TAB PO; +B-12100010 PO; +BISA10SU4 PR; +JUVE1POW PO; +LEVO25TA5 PO; +REXU1TAB2 PO; +RISP0.253 PO; +RISP0.5T82 PO; +ROZE8TAB16 PO; +THERTAB52 PO; +VITA100093 PO
[2024-04-26 22:20] LABS: BASO % 0.2 % (0.0-1.0); EOS # 0.2 10^3/uL (0.0-0.5); EOS % 1.6 % (0.0-3.0); HEMATOCRIT 39.4 % (42.0-52.0); HEMOGLOBIN 12.8 g/dl (13.5-17.5); LYMPH # 1.5 10^3/uL (1.5-5.0); LYMPH % 15.8 % (24.0-44.0); MEAN CORPUSCULAR HGB CONC 32.5 g/dl (32.0-36.5); MEAN CORPUSCULAR VOLUME 98.5 fl (80.0-96.0); MONO # 0.7 10^3/uL (0.0-0.8); NEUTROPHILS # 7.1 10^3/uL (1.5-8.5); PLATELET COUNT, AUTOMATED 315 10^3/uL (150-450); WHITE BLOOD COUNT 9.5 10^3/uL (4.0-10.0)
[2024-04-26 22:29] LABS: APPEARANCE, URINE HAZY (CLEAR); BACTERIA, URINE AUTO NEGATIVE (NEGATIVE); BILIRUBIN, URINE AUTO NEGATIVE (NEGATIVE); BLOOD, URINE BLOOD NEGATIVE (NEGATIVE); CALCIUM OXALATE CRYSTALS SMALL; COLOR, URINE YELLOW (YELLOW); GLUCOSE, URINE (UA) AUTO NEGATIVE (NEGATIVE); KETONE, URINE AUTO NEGATIVE (NEGATIVE); LEUKOCYTE ESTERASE, URINE AUTO NEGATIVE (NEGATIVE); MUCUS, URINE SMALL (NEGATIVE); NITRITE, URINE AUTO NEGATIVE (NEGATIVE); PROTEIN, URINE AUTO 1+ mg/dL (NEGATIVE); RBC, URINE AUTO 1 /HPF (0-3); SPECIFIC GRAVITY URINE AUTO 1.032 (1.002-1.035); SQUAMOUS EPITHELIAL CELL UR AU 0 /HPF (0-6); WBC, URINE AUTO 1 /HPF (0-3)
[2024-04-26 22:53] LABS: BLOOD UREA NITROGEN 34 MG/DL (9-23); CALCIUM LEVEL 8.2 MG/DL (8.3-10.6); CARBON DIOXIDE LEVEL 26 MMOL/L (20-31); CHLORIDE LEVEL 117 MMOL/L (98-107); CREATININE FOR GFR 0.72 MG/DL (0.70-1.30); GLOMERULAR FILTRATION RATE > 60.0 (>42); GLUCOSE, FASTING 119 MG/DL (74-106); POTASSIUM SERUM 3.8 MMOL/L (3.5-5.1); SODIUM LEVEL 149 MMOL/L (136-145)
== END ==
LOC: SKLAB3 20:17
PROVIDERS: ATTEND Internal Medicine
DX: R50.9 Fever, unspecified (principal); R09.02 Hypoxemia; R41.82 Altered mental status, unspecified; R19.7 Diarrhea, unspecified; R05.9 Cough, unspecified

== ENCOUNTER 2024-04-29 10:24 | Inpatient (IN) | payer MEDICARE ==
[~2024-04-29] VITALS: Ht 172.7 cm; Wt 72.8 kg
[~2024-04-29 10:24] MED LIST changes: -ACET325C5 PO; -ACET32TAB PO; -BISA10SU4 PR; -JUVE1POW PO
[2024-04-29] MEDS: LIDOCAINE 2% 5ML JELLY UROJET TOP ONE (10:35)
[2024-04-29] MEDS: methylPREDNISolone 125MG 2ML VIAL IV ONE (10:39)
[2024-04-29] MEDS: IPRATROPIUM 0.5MG/ALBUTEROL 2.5MG INH SOL UD 3ML (DUONEB) NEB ONE (10:46)
[2024-04-29] MEDS: ALBUTEROL SULFATE 2.5MG/0.5ML INH NEB SOLN INH ONE (10:46)
[2024-04-29 10:51] LABS: ABG BASE EXCESS 0.4 (-2.0-2.0); ABG HCO3 21.7 MMOL/L (22.0-26.0); ABG O2 SATURATION 85.6 % (95.0-99.0); ABG STANDARD HCO3 24.5 MMOL/L. (22.0-26.0); ABG TOTAL CO2 22.5 MMOL/L (23.0-31.0); ABG pH (ARTERIAL) 7.523 UNITS (7.350-7.450)
[2024-04-29 10:52] LABS: ABG PARTIAL PRESSURE O2 47.1 mmHg (75.0-100.0)
[2024-04-29 10:59] LABS: HEMATOCRIT 47.7 % (42.0-52.0); HEMOGLOBIN 14.5 g/dl (13.5-17.5); MEAN CORPUSCULAR HGB CONC 30.4 g/dl (32.0-36.5); MEAN CORPUSCULAR VOLUME 101.9 fl (80.0-96.0); PLATELET COUNT, AUTOMATED 345 10^3/uL (150-450); RED BLOOD COUNT 4.68 10^6/uL (4.30-6.10)
[2024-04-29] MEDS: ACETAMINOPHEN *IV* 1,000 MG in IV 1 EA IV ONE (11:11)
[2024-04-29] MEDS: CEFEPIME HCL 2 GM in D5W MINI-BAG PLUS 50 ML IV ONE (11:11)
[2024-04-29] MEDS: NS 1,000 ML IV ONE (11:12)
[2024-04-29] MEDS ORDERED: ISOVUE-370 76% 100ML VIAL As Ordered ONE (11:21)
[2024-04-29 11:22] LABS: CPK CREATINE PHOSPHOKINASE 209 U/L (46-171)
[2024-04-29 11:23] LABS: ALBUMIN 2.8 G/DL (3.2-5.2); ALKALINE PHOSPHATASE 79 U/L (46-116); ALT/SGPT 76 U/L (7.0-40); AST/SGOT 46 U/L (<34); BILIRUBIN,DIRECT 0.2 MG/DL (<0.4); BILIRUBIN,TOTAL 0.7 MG/DL (0.3-1.2); BLOOD UREA NITROGEN 41 MG/DL (9-23); CARBON DIOXIDE LEVEL 28 MMOL/L (20-31); CHLORIDE LEVEL 120 MMOL/L (98-107); CK-MB VALUE MASS 1.7 NG/ML (<3.6); CREATININE FOR GFR 1.02 MG/DL (0.70-1.30); GLOMERULAR FILTRATION RATE > 60.0 (>42); GLUCOSE, FASTING 134 MG/DL (74-106); MB/CK RELATIVE INDEX 0.81 (< OR =4); POTASSIUM SERUM 3.8 MMOL/L (3.5-5.1); SODIUM LEVEL 154 MMOL/L (136-145); TOTAL PROTEIN 6.8 G/DL (5.7-8.2)
[2024-04-29 11:24] LABS: THYROXINE (T4) 6.2 UG/DL (4.5-10.9)
[2024-04-29 11:31] LABS: ATYPICAL LYMPH 2 % (0-5); LYMPHOCYTES 6 % (16-44); MONOCYTES 4 % (0-5); NEUTROPHILS 72 % (28-66)
[2024-04-29 11:32] LABS: HYPOCHROMASIA 1+
[2024-04-29 11:33] LABS: PLATELET ESTIMATE NORMAL (NORMAL)
[2024-04-29 11:58] LABS: PROCALCITONIN 0.16 ng/ml
[2024-04-29] MEDS: NS 1,040 ML in IV 1 EA IV ONE (12:21)
[2024-04-29 13:08] LABS: CK-MB VALUE MASS 1.4 NG/ML (<3.6); MB/CK RELATIVE INDEX 0.71 (< OR =4)
[2024-04-29] MEDS ORDERED: REXU1TAB2 PO (14:19)
[2024-04-29] MEDS ORDERED: BISA10SU4 PR (14:19)
[2024-04-29] MEDS ORDERED: LEVO25TA5 PO (14:19)
[2024-04-29] MEDS ORDERED: JUVE1POW PO (14:19)
[2024-04-29] MEDS ORDERED: ACET32TAB PO (14:22)
[2024-04-29] MEDS ORDERED: ACET325C5 PO (14:22)
[2024-04-29] MEDS ORDERED: HOME MED LIST COMPLETE! XX SCH (14:25)
[2024-04-29] MEDS: LR 1,000 ML IV SCH (16:10)
[2024-04-29] MEDS: KETOROLAC 30 MG/ML 1ML VIAL IV ONE (16:10)
[2024-04-29] MEDS: PIPERACILLIN/TAZOBACTAM SOD 4.5 GM in D5W MINI-BAG PLUS 50 ML IV SCH (17:09)
[2024-04-29] MEDS: BISACODYL 10MG SUPP PR ONE (17:10)
[2024-04-29 18:53] VITALS: BP 95/60; TEMP 99.2; O2SAT 95
[2024-04-29 19:42] VITALS: BP 99/59; TEMP 97; O2SAT 93
[2024-04-29 19:58] VITALS: BP 170/85; TEMP 97.5; O2SAT 93
[2024-04-29 20:53] LABS: BLOOD UREA NITROGEN 39 MG/DL (9-23); CARBON DIOXIDE LEVEL 19 MMOL/L (20-31); CHLORIDE LEVEL 127 MMOL/L (98-107); CREATININE FOR GFR 0.77 MG/DL (0.70-1.30); GLOMERULAR FILTRATION RATE > 60.0 (>42); GLUCOSE, FASTING 135 MG/DL (74-106); MAGNESIUM LEVEL 2.4 MG/DL (1.8-2.4); PHOSPHORUS LEVEL 4.1 MG/DL (2.4-5.1); POTASSIUM SERUM 3.4 MMOL/L (3.5-5.1); SODIUM LEVEL 159 MMOL/L (136-145)
[2024-04-29] MEDS: KCL 40MEQ IN D5/0.45NS 1000ML 1,000 ML IV SCH (21:26)
[2024-04-29] MEDS: DOXYCYCLINE HYCLATE 100 MG in D5W MINI-BAG PLUS 100 ML IV SCH (21:27)
[2024-04-29] MEDS: ENOXAPARIN 40MG/0.4ML SYRINGE (J1650 PER 10MG) SC SCH (21:27)
[2024-04-29 23:12] VITALS: O2SAT 95
[2024-04-29 23:26] VITALS: BP 111/63; TEMP 98.2; O2SAT 93
[2024-04-30] VITALS (12 sets, daily range): BP systolic 101–112; BP diastolic 57–72; TEMP 97.8–100.5; O2SAT 88–95
[2024-04-30 04:48] LABS: HEMATOCRIT 37.4 % (42.0-52.0); MEAN CORPUSCULAR HEMOGLOBIN 31.8 pg (27.0-33.0); MEAN CORPUSCULAR HGB CONC 32.1 g/dl (32.0-36.5); MEAN CORPUSCULAR VOLUME 99.2 fl (80.0-96.0); RED BLOOD COUNT 3.77 10^6/uL (4.30-6.10); WHITE BLOOD COUNT 9.4 10^3/uL (4.0-10.0)
[2024-04-30 04:56] LABS: PLATELET COUNT, AUTOMATED 209 10^3/uL (150-450)
[2024-04-30 05:18] LABS: BLOOD UREA NITROGEN 43 MG/DL (9-23); CALCIUM LEVEL 8.1 MG/DL (8.3-10.6); CARBON DIOXIDE LEVEL 23 MMOL/L (20-31); CHLORIDE LEVEL 127 MMOL/L (98-107); CREATININE FOR GFR 0.74 MG/DL (0.70-1.30); GLOMERULAR FILTRATION RATE > 60.0 (>42); GLUCOSE, FASTING 142 MG/DL (74-106); POTASSIUM SERUM 3.8 MMOL/L (3.5-5.1); SODIUM LEVEL 159 MMOL/L (136-145)
[2024-04-30] MEDS: D5W 1,000 ML IV SCH (05:33)
[2024-04-30] MEDS: KCL 20MEQ IN D5W 1000ML 1,000 ML IV SCH (10:42)
[2024-04-30 18:17] LABS: BLOOD UREA NITROGEN 35 MG/DL (9-23); CALCIUM LEVEL 8.5 MG/DL (8.3-10.6); CARBON DIOXIDE LEVEL 25 MMOL/L (20-31); CHLORIDE LEVEL 120 MMOL/L (98-107); CREATININE FOR GFR 0.65 MG/DL (0.70-1.30); GLOMERULAR FILTRATION RATE > 60.0 (>42); GLUCOSE, FASTING 108 MG/DL (74-106); POTASSIUM SERUM 3.3 MMOL/L (3.5-5.1); SODIUM LEVEL 153 MMOL/L (136-145)
[2024-05-01] VITALS (11 sets, daily range): BP systolic 86–140; BP diastolic 54–73; TEMP 96.5–102.7; O2SAT 92–94
[2024-05-01] MEDS: ACETAMINOPHEN *IV* 1,000 MG in IV 1 EA IV PRN (01:52)
[2024-05-01] MEDS ORDERED: dilTIAZem 25MG/5ML VIAL IV PRN (04:05)
[2024-05-01 04:18] LABS: BASO # 0.1 10^3/uL (0.0-0.2); BASO % 0.6 % (0.0-1.0); EOS # 0.1 10^3/uL (0.0-0.5); EOS % 0.9 % (0.0-3.0); HEMATOCRIT 34.6 % (42.0-52.0); HEMOGLOBIN 11.1 g/dl (13.5-17.5); LYMPH # 0.9 10^3/uL (1.5-5.0); LYMPH % 10.3 % (24.0-44.0); MEAN CORPUSCULAR HEMOGLOBIN 31.4 pg (27.0-33.0); MEAN CORPUSCULAR HGB CONC 32.1 g/dl (32.0-36.5); MEAN CORPUSCULAR VOLUME 97.7 fl (80.0-96.0); MONO # 0.1 10^3/uL (0.0-0.8); MONO % 1.5 % (2.0-8.0); NEUTROPHILS # 7.4 10^3/uL (1.5-8.5); PLATELET COUNT, AUTOMATED 200 10^3/uL (150-450); RED BLOOD COUNT 3.54 10^6/uL (4.30-6.10); WHITE BLOOD COUNT 8.6 10^3/uL (4.0-10.0)
[2024-05-01] MEDS: dilTIAZem 25MG/5ML VIAL IV STA (04:19)
[2024-05-01] MEDS: KETOROLAC 30 MG/ML 1ML VIAL IV ONE (04:36)
[2024-05-01 04:42] LABS: BLOOD UREA NITROGEN 31 MG/DL (9-23); CARBON DIOXIDE LEVEL 22 MMOL/L (20-31); CHLORIDE LEVEL 120 MMOL/L (98-107); CREATININE FOR GFR 0.63 MG/DL (0.70-1.30); GLOMERULAR FILTRATION RATE > 60.0 (>42); GLUCOSE, FASTING 115 MG/DL (74-106); MAGNESIUM LEVEL 2.2 MG/DL (1.8-2.4); POTASSIUM SERUM 3.2 MMOL/L (3.5-5.1); SODIUM LEVEL 150 MMOL/L (136-145)
[2024-05-01] MEDS: KCL 10MEQ/100ML SWI (KRUN) 10 MEQ in IV 1 EA IV SCH (05:07)
[2024-05-01] MEDS: KCL 40MEQ IN D5/0.45NS 1000ML 1,000 ML IV SCH (05:08)
[2024-05-01] MEDS: DIGOXIN INJ 0.5 MG/2 ML AMP IV STA (06:19)
[2024-05-01] MEDS: NS 1,000 ML IV ONE (06:33)
[2024-05-01] MEDS: DIGOXIN INJ 0.5 MG/2 ML AMP IV ONE ×2 (09:20→14:59)
[2024-05-01 11:30] LABS: BLOOD UREA NITROGEN 31 MG/DL (9-23); CARBON DIOXIDE LEVEL 24 MMOL/L (20-31); CHLORIDE LEVEL 119 MMOL/L (98-107); CREATININE FOR GFR 0.62 MG/DL (0.70-1.30); GLOMERULAR FILTRATION RATE > 60.0 (>42); GLUCOSE, FASTING 92 MG/DL (74-106); POTASSIUM SERUM 3.8 MMOL/L (3.5-5.1); SODIUM LEVEL 147 MMOL/L (136-145)
[2024-05-01] MEDS: LEVALBUTEROL 1.25MG 0.5ML CONCENTRATE NEB INH SCH (14:00)
[2024-05-02] MEDS: KETOROLAC 30 MG/ML 1ML VIAL IV ONE (01:23)
[2024-05-02 01:36] LABS: ABG BASE EXCESS -7.2 (-2.0-2.0); ABG HCO3 14.2 MMOL/L (22.0-26.0); ABG O2 SATURATION 95.5 % (95.0-99.0); ABG PARTIAL PRESSURE O2 78.5 mmHg (75.0-100.0); ABG STANDARD HCO3 18.5 MMOL/L. (22.0-26.0); ABG TOTAL CO2 14.8 MMOL/L (23.0-31.0); ABG pH (ARTERIAL) 7.486 UNITS (7.350-7.450)
[2024-05-02 01:37] LABS: ABG PARTIAL PRESSURE CO2 19.2 mmHg (35.0-45.0)
[2024-05-02 01:43] VITALS: TEMP 99.8
[2024-05-02] MEDS: LORazepam 2 MG/ML 1ML VIAL IV STA (02:02)
[2024-05-02] MEDS: MEROPENEM INJ 1 GM in IV 1 EA IV SCH (04:30)
[2024-05-02 04:32] VITALS: BP 98/55; TEMP 96.6; O2SAT 93
[2024-05-02 06:08] LABS: ABG BASE EXCESS -4.8 (-2.0-2.0); ABG HCO3 17.7 MMOL/L (22.0-26.0); ABG O2 SATURATION 97.2 % (95.0-99.0); ABG PARTIAL PRESSURE CO2 25.5 mmHg (35.0-45.0); ABG PARTIAL PRESSURE O2 93.9 mmHg (75.0-100.0); ABG STANDARD HCO3 20.5 MMOL/L. (22.0-26.0); ABG TOTAL CO2 18.5 MMOL/L (23.0-31.0)
[2024-05-02 06:36] LABS: HEMATOCRIT 34.2 % (42.0-52.0); HEMOGLOBIN 10.5 g/dl (13.5-17.5); MEAN CORPUSCULAR HEMOGLOBIN 31.2 pg (27.0-33.0); MEAN CORPUSCULAR HGB CONC 30.7 g/dl (32.0-36.5); MEAN CORPUSCULAR VOLUME 101.5 fl (80.0-96.0); PLATELET COUNT, AUTOMATED 182 10^3/uL (150-450); RED BLOOD COUNT 3.37 10^6/uL (4.30-6.10); WHITE BLOOD COUNT 10.1 10^3/uL (4.0-10.0)
[2024-05-02 06:46] LABS: BLOOD UREA NITROGEN 27 MG/DL (9-23); CALCIUM LEVEL 8.3 MG/DL (8.3-10.6); CARBON DIOXIDE LEVEL 21 MMOL/L (20-31); CHLORIDE LEVEL 121 MMOL/L (98-107); CREATININE FOR GFR 0.58 MG/DL (0.70-1.30); GLOMERULAR FILTRATION RATE > 60.0 (>42); GLUCOSE, FASTING 69 MG/DL (74-106); POTASSIUM SERUM 3.4 MMOL/L (3.5-5.1); SODIUM LEVEL 152 MMOL/L (136-145)
[2024-05-02 08:15] VITALS: BP 126/72; TEMP 99.9; O2SAT 96
[2024-05-02] MEDS ORDERED: GLUCOSE 4 GM CHEW PO PRN (08:20)
[2024-05-02] MEDS ORDERED: GLUCAGON INJ 1MG VIAL SC PRN (08:20)
[2024-05-02] MEDS ORDERED: DEXTROSE 50% 50ML SYRINGE IV PRN (08:20)
[2024-05-02] MEDS: KCL 20MEQ IN D5W 1000ML 1,000 ML IV SCH (08:54)
[2024-05-02] MEDS: FLEET ENEMA PR ONE (10:58)
[2024-05-02] MEDS: BISACODYL 10MG SUPP PR ONE (12:37)
[2024-05-02] MEDS: DIGOXIN INJ 0.5 MG/2 ML AMP IV ONE (12:50)
[2024-05-02] MEDS ORDERED: ATROPINE SULFATE 1% OPHTH SOLN 2ML BTL SL PRN (14:30)
[2024-05-02] MEDS: MORPHINE 10MG/0.5ML ORAL CONCENTRATE SOLUTION U/D SL SCH (15:17)
[2024-05-02] MEDS ORDERED: FLEET ENEMA PR PRN (15:40)
[2024-05-02] MEDS: LORazepam 1 MG TAB PO PRN (17:03)
[2024-05-02] MEDS: SCOPOLAMINE 1MG TRANSDERMAL PATCH TOP PRN (17:04)
[2024-05-02] MEDS: LevoFLOXacin IV 750 MG in IV 1 EA IV SCH (18:40)
[2024-05-02] MEDS ORDERED: DOXYCYCLINE HYCLATE 100MG TABLET PO SCH (21:00)
[2024-05-02] MEDS: DOXYCYCLINE HYCLATE 100 MG in D5W MINI-BAG PLUS 100 ML IV SCH (21:07)
[2024-05-03] MEDS: MORPHINE 10MG/0.5ML ORAL CONCENTRATE SOLUTION U/D SL PRN (05:04)
[2024-05-03] MEDS ORDERED: LevoFLOXacin 750 MG TABLET PO SCH (06:00)
[2024-05-03] MEDS: MORPHINE 10MG/0.5ML ORAL CONCENTRATE SOLUTION U/D SL SCH (12:56)
[2024-05-03] MEDS: BISACODYL 10MG SUPP PR PRN (12:56)
[2024-05-03 17:27] LABS: URINE STREP PNEUMONIAE ANTIGEN NOT DETECTED (NOT DETECT)
[2024-05-05] MEDS ORDERED: ATROPINE SULFATE 1% OPHTH SOLN 2ML BTL SL PRN (10:20)
[2024-05-05] MEDS: MORPHINE 10MG/0.5ML ORAL CONCENTRATE SOLUTION U/D SL PRN (14:12)
[2024-05-06] MEDS: MORPHINE 10MG/0.5ML ORAL CONCENTRATE SOLUTION U/D SL PRN (10:26)
[2024-05-06] MEDS: LORazepam 1 MG TAB PO PRN (15:19)
== END 2024-05-06 18:00 | disposition expired | DRG 871 ==
LOC: M ED 10:24 → EDBD 10:24 → M ED INP 15:12 → M PCU 18:38 → M MS5PR 05-03 16:46
PROVIDERS: ADMIT Internal Medicine; ATTEND General Practice
PROC: B246ZZZ Ultrasonography of Right and Left Heart (ICD-10-PCS; principal; 2024-05-01)
DX: A41.9 Sepsis, unspecified organism (principal); J96.01 Acute respiratory failure with hypoxia; G93.41 Metabolic encephalopathy; J69.0 Pneumonitis due to inhalation of food and vomit; G92.8 Other toxic encephalopathy; G21.0 Malignant neuroleptic syndrome; F03.911 Unspecified dementia, unspecified severity, with agitation; E87.0 Hyperosmolality and hypernatremia; E46 Unspecified protein-calorie malnutrition; E87.20 Acidosis, unspecified; N17.9 Acute kidney failure, unspecified; E78.5 Hyperlipidemia, unspecified; K21.9 Gastro-esophageal reflux disease without esophagitis; E03.9 Hypothyroidism, unspecified; R57.1 Hypovolemic shock; E86.0 Dehydration; K59.00 Constipation, unspecified; R33.9 Retention of urine, unspecified; R91.1 Solitary pulmonary nodule; R26.89 Other abnormalities of gait and mobility; Z66 Do not resuscitate; N52.9 Male erectile dysfunction, unspecified; D64.9 Anemia, unspecified; I48.91 Unspecified atrial fibrillation; E87.6 Hypokalemia; E78.00 Pure hypercholesterolemia, unspecified; R13.10 Dysphagia, unspecified; Z87.891 Personal history of nicotine dependence; Z88.8 Allergy status to other drugs, medicaments and biological substances; Z79.890 Hormone replacement therapy; Z79.899 Other long term (current) drug therapy

== ENCOUNTER → 2024-04-30 | Outpatient (REF) | payer MEDICARE ==
[~2024-04-30] MED LIST changes: +ACET325C5 PO; +ACET32TAB PO; +BISA10SU4 PR; +JUVE1POW PO
== END ==
LOC: SKLAB3 07:49
PROVIDERS: ATTEND Internal Medicine
DX: Z53.8 Procedure and treatment not carried out for other reasons (principal)